=== PATIENT | male | born 1985 | race Caucasian/White ===

== ENCOUNTER 2022-07-11 20:35 | Inpatient (IN) | payer OTHER ==
[~2022-07-11] VITALS: Ht 182.9 cm; Wt 124.7 kg
[2022-07-11 20:35] VITALS: BP 159/92
--- NOTE | 2022-07-11 20:41 | NUR ---
PT BIBA ALS ER BED 5
--- NOTE | 2022-07-11 20:45 | NUR ---
Dr. Flores by bedside evaluating patient.
--- NOTE | 2022-07-11 21:00 | NUR ---
36YR OLD MALE BIB EMS C/O HIGH GLUC HTN. PT IS FROM [facility] [address]. PT IS A&OX3. PAIN IN LUCINA SHOULERS NO INJURY. CHRONIC PAIN. PT IS ON BEDSIDE SOLUTIONS EXECUTIVE SECURITY DENIES CP OR SOB . ACCU CHECK ON ARRIVAL 399. HOB ELEVATED. SKIN WARM AND DRY. NKDA DM HTN HONORIO VILLANUEVA
[2022-07-11] MEDS ORDERED: INSULIN REGULAR, HUMAN 100 UNIT/ML VIAL IV ONE (21:05)
[2022-07-11] MEDS ORDERED: NACL 0.9% 1,000 ML IV ONE (21:05)
[2022-07-11 21:26] LABS: APPEARANCE,URINE CLEAR (CLEAR); BILIRUBIN,URINE NEGATIVE (NEGATIVE); BLOOD, URINE NEGATIVE (NEGATIVE); COLOR,URINE YELLOW (YELLOW); LEUKOCYTE ESTERASE ,URINE NEGATIVE (NEGATIVE); NITRITE, URINE NEGATIVE (NEGATIVE); UGLUCOSE 3+ (NEGATIVE)
[2022-07-11 21:52] LABS: BASOPHILS # (AUTO) 0.1 K/uL (0.00-0.22); BASOPHILS % (AUTO) 0.9 % (0.0-2.0); EOSINOPHILS # (AUTO) 0.1 K/uL (0-0.4); EOSINOPHILS % (AUTO) 0.7 % (0.0-4.0); HEMATOCRIT 39.4 % (36-52); LYMPHOCYTES # (AUTO) 2.4 K/uL (2.0-11.5); LYMPHOCYTES % (AUTO) 21.9 % (20.5-51.1); MEAN CORPUSCULAR HEMOGLOBIN 30 pg (27-31); MEAN CORPUSCULAR HGB CONC 33 g/dL (33-37); MEAN CORPUSCULAR VOLUME 90.8 fL (80-94); MONOCYTES # (AUTO) 1.1 K/uL (0.8-1.0); MONOCYTES % (AUTO) 10.1 % (1.7-9.3); NEUTROPHILS # (AUTO) 7.3 K/uL (1.8-7.7); NEUTROPHILS % (AUTO) 66.4 % (42.2-75.2); PLATELET COUNT (AUTO) 403 K/uL (140-450); RED BLOOD CELL COUNT(AUTO) 4.35 MIL/uL (4.20-6.10); RED CELL DISTRIBUTION WIDTH 13.4 % (11.6-13.7); WHITE BLOOD COUNT (AUTO) 10.9 K/uL (4.8-10.8)
--- NOTE | 2022-07-11 22:01 | NUR ---
FOOD PROVIDED TO PT
[2022-07-11 22:25] LABS: ALBUMIN 3.4 g/dL (3.4-5.0); ANION GAP 21.3 (8-16); CARBON DIOXIDE 16.4 mmol/L (21-32); CREATININE 0.9 mg/dL (0.6-1.3); POTASSIUM 4.7 mmol/L (3.5-5.1); TOTAL BILIRUBIN 0.3 mg/dL (0.0-1.0)
[2022-07-11] MEDS ORDERED: INSULIN REGULAR, HUMAN 100 UNIT/ML VIAL IVP ONE (22:45)
[2022-07-12] MEDS ORDERED: MAGNESIUM OXIDE 400 MG TAB PO PRN (02:15)
[2022-07-12] MEDS ORDERED: MORPHINE SULFATE 2 MG/ML SYR IVP PRN (02:15)
[2022-07-12] MEDS: NACL 0.9% 1,000 ML IV SCH ×2 (02:15→14:52)
[2022-07-12] MEDS ORDERED: ONDANSETRON 4 MG/2 ML VIAL IVP PRN (02:15)
[2022-07-12] MEDS ORDERED: ACETAMINOPHEN 325 MG TAB PO PRN (02:15)
[2022-07-12] MEDS ORDERED: DEXTROSE 50% 50 ML SYR IVP PRN (02:20)
[2022-07-12] MEDS ORDERED: cefTRIAXone 1,000 MG VIAL ONE (03:06)
[2022-07-12] MEDS: INSULIN LANTUS 100 UNITS/ML 10 ML VIAL SUBQ SCH ×2 (03:45→10:21)
--- NOTE | 2022-07-12 04:58 | NUR ---
PT RESTING IN BED ON BEDSIDE SUPERVISOR COLD ROLLING. PT IS ADMITTED TO TELE A HOLD. 24G IV CATH PLACED IN L WRIST. RESP EVEN AND UNLABORED.
[2022-07-12] MEDS ORDERED: METF-713 PO (06:17)
[2022-07-12] MEDS ORDERED: IBUP-2213 PO (06:18)
--- NOTE | 2022-07-12 07:20 | NUR ---
Report recieved from KHALIF Montiel for transfer of care.
[2022-07-12] MEDS: BLOOD GLUCOSE MONITORING 1 DEV DEV FS SCH ×4 (07:44→20:23)
--- NOTE | 2022-07-12 07:59 | NUR ---
Patient will be admitted to care of Dr. Rivera. Admited to Med-Surg. Will go to room 124A. Belongings list completed. Report to KHALIF Mahan.
--- NOTE | 2022-07-12 08:00 | NUR ---
The patient's care was reviewed and supervised by RICHARD ECKERT RN.
--- NOTE | 2022-07-12 09:03 | NUR ---
PATIENT HAS BEEN SCREENED AND CATEGORIZED MODERATE NUTRITION RISK. PATIENT WILL BE SEEN WITHIN 3-5 DAYS OF ADMISSION. REVIEWED BY SRIDHAR ANDRADE RD
--- NOTE | 2022-07-12 09:46 | NUR ---
RECEIVED PT CARE AND REPORT FROM NATO RN. PT IS RESTING IN BED SEMI-FOWLERS WITH OU CLOSED. NO VISIBLE S/S OF DISTRESS, DISCOMFORT, PAIN OR SOB. CALL LIGHT IS WITHIN REACH, ALL NEEDS MET AT THIS TIME.
[2022-07-12] MEDS: DOCUSATE SODIUM 100 MG GELCAP PO SCH (10:18)
[2022-07-12] MEDS: ENOXAPARIN 40 MG/0.4 ML SYR SUBQ SCH (10:22)
--- NOTE | 2022-07-12 11:13 | NUR ---
MRSA SPECIMEN OBTAINED.
--- NOTE | 2022-07-12 11:54 | NUR ---
DC PLANNING ASSESSMENT COMPLETE PLEASE REFER TO ASSESSMENT FOR ADDITIONAL DETAILS ALECIA, BAKERY HELPER REPORTS DC PLAN IS FOR PT TO RETURN TO [facility]; SOCIAL REHAB PROGRAM WHEN MEDICALLY STABLE. FACILITY IS REPORTED TO PROVIDE TRANSPORTATION. ALECIA REQUESTING ENGAGEMENT ENGINEER DIRECTOR, RICHARD, BE NOTIFIED IF DC OCCURS OVER THE WEEKEND. 1045: OUTREACHED TO PTS CONSERVATOR; LINK [phone] HOWEVER SPOKE WITH PRADIP COTTON BALL MACHINE TENDER WHO REPORTS LINK IS OUT OF THE OFFICE FOR HER FLEX FRIDAY. MOUNIKA REQUESTED TO SPEAK WITH OF THE DAY DAHIANA HOWEVER, PRADIP REPOTS HE IS CURRENTLY ON ANOTHER CALL. PRADIP REPORTS EMAIL WAS BEING SENT TO DAHIANA, ALL CONTACT INFO FOR MOUNIKA AND LUKE, PROVIDED TO PRADIP Addendum: 07/12/22 at 1159 by Tod PISANO Amended: Links added. Addendum: 08/09/22 at 1346 by Tod PISANO OUTREACHED TO JENIFER SOMMER, , LINK SIMPSON PRODUCE SPECIALIST, HOWEVER NO ANSWER.
[2022-07-12 12:00] VITALS: BP 130/75
--- NOTE | 2022-07-12 12:05 | NUR ---
NO SLIDING SCALE AT THIS TIME. TEXTED DR. PAREKH TO REQUEST SLIDING SCALE. BLOOD SUGAR IS 323 AT THIS TIME.
[2022-07-12] MEDS: INSULIN LISPRO SLIDING SCALE 100 UNITS/ML VIAL SUBQ PRN ×3 (12:21→20:27)
--- NOTE | 2022-07-12 14:15 | NUR ---
TEXTED DR. PAREKH TO INFORM THAT PATIENT IS REQUESTING NICODERM GUM. ASKED IF NICODERM PATCH CAN BE ORDERED FOR PATIENT. AWAITING ORDER.
--- NOTE | 2022-07-12 15:44 | NUR ---
NEW IV INSERTED BY [facility] IN[facility] TJ IN LEFT AC 22G X1 ATTEMPT WITH STUDENTS. IV LINE INTACT AND FLUSHES. NO COMPLAINTS OF PAIN FROM PT.
[2022-07-12 16:00] VITALS: BP 139/79
--- NOTE | 2022-07-12 17:34 | NUR ---
REPORT GIVEN TO DELIO CUADRA FOR TRANSFER OF CARE. PT IS RESTING IN BED ON LEFT SIDE WITH OU CLOSED. NO VISIBLE S/S OF DISTRESS, DISCOMFORT, PAIN OR SOB. CALL LIGHT IS WITHIN REACH, ALL NEEDS MET AT THIS TIME.
--- NOTE | 2022-07-12 17:35 | NUR ---
RECEIVED PT FROM [place] FOR TRANSFER OF CARE. PT IS WALKING INTO HALLWAY AOX4, ABLE TO VERBALIZE NEEDS. RESPIRATIONS EVEN AND UNLABORED. LUNGS CLEAR. IV ON LAC 20G RUNNING NS@80. PT REDIRECTED TO BED. ALL SAFETY PRECAUTIONS IN PLACE. CALL LIGHT WITHIN REACH.
--- NOTE | 2022-07-12 19:22 | NUR ---
ENDORSED PT TO CORRECTIONS CASEWORKER NURSE FOR CONTINUITY OF CARE. PT STABLE.
--- NOTE | 2022-07-12 19:30 | NUR ---
RECEIVED PT IN BED, AWAKE,ALERT AND ORIENTED. DENIES PAIN. DENIES SHORTNESS OF BREATH. SKIN WARM AND DRY TO TOUCH IV NOT FLUSHING, REINSERTED IV IN THE RIGHT WRIST GAUGE 24. SAFETY PRECAUTIONS IN PLACE, CALL LIGHT IN REACH.
[2022-07-12 20:00] VITALS: BP 141/75
[2022-07-12] MEDS: MELATONIN 3 MG TAB PO PRN (21:13)
[2022-07-12] MEDS: HYDROcodone/APAP 5/325 MG 1 TAB TAB PO PRN (23:31)
--- NOTE | 2022-07-13 01:50 | NUR ---
PATIENT IS ASLEEP. NO S/SX OF PAIN NOR DISCOMFORT. CALL LIGHT IN REACH.
[2022-07-13] MEDS: NACL 0.9% 1,000 ML IV SCH ×3 (02:13→23:38)
[2022-07-13 04:00] VITALS: BP 147/80
[2022-07-13 05:39] LABS: BASOPHILS # (AUTO) 0.1 K/uL (0.00-0.22); BASOPHILS % (AUTO) 0.6 % (0.0-2.0); EOSINOPHILS # (AUTO) 0.2 K/uL (0-0.4); EOSINOPHILS % (AUTO) 1.5 % (0.0-4.0); HEMATOCRIT 35.2 % (36-52); HEMOGLOBIN 11.8 g/dL (12.0-18.0); LYMPHOCYTES # (AUTO) 3.9 K/uL (2.0-11.5); MEAN CORPUSCULAR HEMOGLOBIN 30 pg (27-31); MEAN CORPUSCULAR HGB CONC 34 g/dL (33-37); MEAN CORPUSCULAR VOLUME 89.3 fL (80-94); MONOCYTES % (AUTO) 9.8 % (1.7-9.3); NEUTROPHILS # (AUTO) 5.3 K/uL (1.8-7.7); NEUTROPHILS % (AUTO) 51.1 % (42.2-75.2); PLATELET COUNT (AUTO) 356 K/uL (140-450); RED BLOOD CELL COUNT(AUTO) 3.94 MIL/uL (4.20-6.10); RED CELL DISTRIBUTION WIDTH 13.3 % (11.6-13.7); WHITE BLOOD COUNT (AUTO) 10.5 K/uL (4.8-10.8)
[2022-07-13 06:24] LABS: ANION GAP 16.9 (8-16); CARBON DIOXIDE 19.8 mmol/L (21-32); CREATININE 0.7 mg/dL (0.6-1.3); POTASSIUM 3.7 mmol/L (3.5-5.1)
[2022-07-13] MEDS: BLOOD GLUCOSE MONITORING 1 DEV DEV FS SCH ×4 (06:34→20:25)
[2022-07-13] MEDS: INSULIN LISPRO SLIDING SCALE 100 UNITS/ML VIAL SUBQ PRN ×4 (06:35→20:26)
--- NOTE | 2022-07-13 06:45 | NUR ---
PATIENT IS ASLEEP. ALL NEEDS ATTENDED TO. NO DISTRESS NOTED. SAFETY PRECAUTIONS IN PLACE DURING THE SHIFT, CALL LIGHT REMAINS WITHIN REACH.
[2022-07-13] MEDS: NICOTINE TRANSD SYS 7 MG/24 HR PATCH TD SCH (09:25)
[2022-07-13] MEDS: DOCUSATE SODIUM 100 MG GELCAP PO SCH (09:26)
[2022-07-13] MEDS: ENOXAPARIN 40 MG/0.4 ML SYR SUBQ SCH (09:26)
[2022-07-13] MEDS: INSULIN LANTUS 100 UNITS/ML 10 ML VIAL SUBQ SCH (09:27)
--- NOTE | 2022-07-13 10:38 | NUR ---
RECEIVED BEDSIDE ENDORSEMENT FROM IT SUPPORT MANAGER NURSE FOR CONTINUITY OF CARE. PT IS ASLEEP, AWAKEN BY NAME AND TOUCH. NO SIGN OF DISTRESS. IV SITE INTACT ON RIGHT WRIST. WILL CONTINUE TO MONITOR. Addendum: 07/13/22 at 1100 by JOSÉ MANUEL WINTERS RN WRONG TIME ENTRY. [id number]
[2022-07-13] MEDS ORDERED: INSULIN LISPRO 100 UNITS/ML VIAL SUBQ ONE (16:30)
--- NOTE | 2022-07-13 19:40 | NUR ---
RECEIVED PT IN BED AWAKE, ALERT AND ORIENTED. DENIES PAIN. NO ACUTE RESPIRATORY DISTRESS NOTED. IVF INFUSING WELL ORDERED. SKIN WARM AND DRY TO TOUCH. SAFETY PRECAUTIONS IN PLACE, CALL LIGHT IN REACH.
[2022-07-13 20:00] VITALS: BP 152/88
--- NOTE | 2022-07-13 20:26 | NUR ---
BS-398 MG/DL, INSULIN GIVEN PER SLIDING SCALE ORDERED.
--- NOTE | 2022-07-13 21:00 | NUR ---
PROVIDED SANDWICH PER PT'S REQUEST.
[2022-07-13] MEDS: MELATONIN 3 MG TAB PO PRN (22:10)
[2022-07-14 04:00] VITALS: BP 113/62
[2022-07-14] MEDS: BLOOD GLUCOSE MONITORING 1 DEV DEV FS SCH ×4 (06:33→19:55)
[2022-07-14] MEDS: INSULIN LISPRO SLIDING SCALE 100 UNITS/ML VIAL SUBQ PRN ×3 (06:33→19:57)
--- NOTE | 2022-07-14 06:35 | NUR ---
PATIENT IS ASLEEP. ALL NEEDS ATTENDED TO. NO DISTRESS NOTED. SAFETY PRECAUTIONS MAINTAINED DURING THE SHIFT, CALL LIGHT REMAINS WITHIN REACH.
[2022-07-14 07:01] LABS: BASOPHILS # (AUTO) 0.1 K/uL (0.00-0.22); BASOPHILS % (AUTO) 0.6 % (0.0-2.0); EOSINOPHILS # (AUTO) 0.1 K/uL (0-0.4); HEMATOCRIT 37.2 % (36-52); HEMOGLOBIN 12.4 g/dL (12.0-18.0); LYMPHOCYTES # (AUTO) 3.8 K/uL (2.0-11.5); LYMPHOCYTES % (AUTO) 36.6 % (20.5-51.1); MEAN CORPUSCULAR HEMOGLOBIN 30 pg (27-31); MEAN CORPUSCULAR HGB CONC 33 g/dL (33-37); MEAN CORPUSCULAR VOLUME 89.3 fL (80-94); MONOCYTES # (AUTO) 0.9 K/uL (0.8-1.0); MONOCYTES % (AUTO) 8.1 % (1.7-9.3); NEUTROPHILS # (AUTO) 5.6 K/uL (1.8-7.7); NEUTROPHILS % (AUTO) 53.7 % (42.2-75.2); PLATELET COUNT (AUTO) 356 K/uL (140-450); RED BLOOD CELL COUNT(AUTO) 4.17 MIL/uL (4.20-6.10); RED CELL DISTRIBUTION WIDTH 13.4 % (11.6-13.7); WHITE BLOOD COUNT (AUTO) 10.5 K/uL (4.8-10.8)
[2022-07-14 07:05] LABS: ANION GAP 16.8 (8-16); CARBON DIOXIDE 21.7 mmol/L (21-32); CREATININE 0.7 mg/dL (0.6-1.3); POTASSIUM 3.5 mmol/L (3.5-5.1)
--- NOTE | 2022-07-14 07:10 | NUR ---
RECEIVED REPORT FROM NIGHTSHIFT NURSE. PT IS RESTING IN BED, NO SIGNS OF DISTRESS, NO REPORTS OF PAIN/DISCOMFORT. IV TO LEFT AC CLEAN/INTACT/PATENT. REORIENTED PT TO CALL LIGHT. NO FURTHER NEEDS ARE TO BE MET AT THIS TIME. WILL CONTINUE WITH PATIENT CARE.
[2022-07-14] MEDS: ENOXAPARIN 40 MG/0.4 ML SYR SUBQ SCH (08:52)
[2022-07-14] MEDS: DOCUSATE SODIUM 100 MG GELCAP PO SCH (08:53)
[2022-07-14] MEDS: NICOTINE TRANSD SYS 7 MG/24 HR PATCH TD SCH (08:53)
[2022-07-14] MEDS ORDERED: INSULIN LANTUS 100 UNITS/ML 10 ML VIAL SUBQ SCH (09:00)
[2022-07-14] MEDS: INSULIN LISPRO 100 UNITS/ML VIAL SUBQ SCH ×2 (12:30→17:30)
[2022-07-14] MEDS: NACL 0.9% 1,000 ML IV SCH (16:49)
--- NOTE | 2022-07-14 19:24 | NUR ---
ENDORSED PT TO NIGHTSHIFT NURSE FOR CONTINUITY OF CARE. PT IS AWAKE, STABLE, NO SIGNS OF DISTRESS. PT STARTING TO WANDER. DIRECTED PT BACK TO BED AND INSTRUCTED HIM TO STAY. NIGHTSHIFT NURSE IS AWARE OF PT WANDERING.
[2022-07-14 20:00] VITALS: BP 156/92
--- NOTE | 2022-07-14 20:00 | NUR ---
NURSE REPORT REPORT OBTAINED FROM MYLENE ZHANG AT 1924 AND THIS NURSE ASSUMED CARE OF PATIENT. VSS. AFEB, NO C/O PAIN OR DISCOMFORT. YECENIA MEZA RN
--- NOTE | 2022-07-14 21:30 | NUR ---
NURSE REPORT REPORT GIVEN TO OTHER NIGHT NURSE JONAS TO ASSUME CARE OF PATIENT. ALL QUESTIONS ANSWERED. YECENIA MEZA RN
[2022-07-14] MEDS: MELATONIN 3 MG TAB PO PRN (22:25)
--- NOTE | 2022-07-15 02:27 | NUR ---
Pt dislodged saline lock earlier. Attempted restart to RH - but unable to get venous access. Pt also has no visible veins at this time. Reported situation and staff reports pt being a hard stick. Additionally, pt has difficult time understanding what "relax" means; Pt interpreted the word as to stiffen arm, hand, both arm and hand, making a tight fist, etc.
--- NOTE | 2022-07-15 04:07 | NUR ---
NsgSup restarted IV access site to L Arm.
[2022-07-15 05:23] LABS: BASOPHILS # (AUTO) 0.2 K/uL (0.00-0.22); BASOPHILS % (AUTO) 1.5 % (0.0-2.0); EOSINOPHILS # (AUTO) 0.2 K/uL (0-0.4); EOSINOPHILS % (AUTO) 1.3 % (0.0-4.0); HEMATOCRIT 37.2 % (36-52); HEMOGLOBIN 12.3 g/dL (12.0-18.0); LYMPHOCYTES # (AUTO) 3.6 K/uL (2.0-11.5); LYMPHOCYTES % (AUTO) 29.4 % (20.5-51.1); MEAN CORPUSCULAR HEMOGLOBIN 30 pg (27-31); MEAN CORPUSCULAR HGB CONC 33 g/dL (33-37); MEAN CORPUSCULAR VOLUME 89.5 fL (80-94); MONOCYTES % (AUTO) 7.8 % (1.7-9.3); NEUTROPHILS # (AUTO) 7.4 K/uL (1.8-7.7); PLATELET COUNT (AUTO) 371 K/uL (140-450); RED BLOOD CELL COUNT(AUTO) 4.16 MIL/uL (4.20-6.10); RED CELL DISTRIBUTION WIDTH 13.2 % (11.6-13.7); WHITE BLOOD COUNT (AUTO) 12.4 K/uL (4.8-10.8)
[2022-07-15 05:38] LABS: ANION GAP 15.2 (8-16); CARBON DIOXIDE 22.4 mmol/L (21-32); CREATININE 0.8 mg/dL (0.6-1.3); POTASSIUM 3.6 mmol/L (3.5-5.1)
[2022-07-15] MEDS: NACL 0.9% 1,000 ML IV SCH (06:17)
--- NOTE | 2022-07-15 07:10 | NUR ---
RECEIVED BEDSIDE REPORT FROM NIGHTSHIFT NURSE. PT IS RESTING IN BED, NO SIGNS OF DISTRESS, NO REPORTS OF PAIN/DISCOMFORT. NO FURTHER NEEDS ARE TO BE MET AT THIS TIME. WILL CONTINUE WITH CARE.
[2022-07-15] MEDS: BLOOD GLUCOSE MONITORING 1 DEV DEV FS SCH ×4 (07:39→20:45)
[2022-07-15] MEDS: INSULIN LISPRO 100 UNITS/ML VIAL SUBQ SCH ×3 (07:43→17:19)
[2022-07-15] MEDS: INSULIN LISPRO SLIDING SCALE 100 UNITS/ML VIAL SUBQ PRN ×2 (07:45→20:46)
[2022-07-15 08:00] VITALS: BP 138/72
[2022-07-15] MEDS: NICOTINE TRANSD SYS 7 MG/24 HR PATCH TD SCH (08:50)
[2022-07-15] MEDS: ENOXAPARIN 40 MG/0.4 ML SYR SUBQ SCH (08:50)
[2022-07-15] MEDS: DOCUSATE SODIUM 100 MG GELCAP PO SCH (08:51)
[2022-07-15] MEDS: INSULIN LANTUS 100 UNITS/ML 10 ML VIAL SUBQ SCH (08:54)
[2022-07-15] MEDS ORDERED: CEFD300C3 PO (10:47)
[2022-07-15] MEDS ORDERED: LANTUS SUBQ (10:47)
[2022-07-15] MEDS ORDERED: HUM SUBQ (10:47)
[2022-07-15] MEDS ORDERED: ACET-1182 PO (10:47)
[2022-07-15] MEDS ORDERED: FUROSEMIDE 20 MG/2 ML VIAL IVP SCH (13:00)
--- NOTE | 2022-07-15 13:00 | NUR ---
ARRANGING DISCHARGE FOR PT. CONTACTED [facility] (BOARDING CARE) AND SPOKE WITH DIRECTOR (COMPA- ) AND GLOBAL DIRECTOR AIR AND CLIMATE CHANGE (ALECIA- ). ALECIA STATES THEY CANNOT ACCEPT THE PT BACK IF HE HAS PRESCRIPTION FOR INSULIN THEY CANNOT GIVE ANY MEDS. CASE MANAGEMENT INFORMED. WAITING FOR INSTRUCTION/INFORMATION ON WHERE PT WILL BE DISCHARGED.
[2022-07-15 13:59] VITALS: BP 130/72
--- NOTE | 2022-07-15 14:37 | NUR ---
07/15/22 RD INITIAL ASSESSMENT COMPLETED PLEASE REFER TO NUTRITION ASSESSMENT UNDER CARE ACTIVITY FOR ESTIMATED NUTRITIONAL NEEDS. 1. CONTINUE [id number] DIET TOLERATED 2. PROVIDED NUTRITION EDUCATION AND HANDOUTS FOR CARB COUNTING 3. RD TO FOLLOW-UP 7 DAYS, LOW RISK REVIEWED BY SRIDHAR ANDRADE RD
--- NOTE | 2022-07-15 19:30 | NUR ---
ENDORSED PT TO NIGHTSCOFT NURSE FOR CONTINUITY OF CARE. PT HAS NO IV SITE, REMOVED IV AGAIN, ATTEMPTED 2X TO REINSERT IV AND WAS UNSUCCESSFUL. HAD ANOTHER NURSE ATTEMPT 2X AND THE CHARGE NURSE ATTEMPT 2X. ALL UNSUCCESSFUL. PT DOES NOT WANT TO TRY AGAIN. NIGHTSCOFT NURSE INFORMED.
--- NOTE | 2022-07-15 19:31 | NUR ---
RECEIVED REPORT FROM DAY SHIFT NURSE LEATHA FOR CONTINUITY OF CARE. PT AWAKE, WALKING INSIDE ROOM. AMBULATORY WITH STEADY GAIT. RESPIRATIONS EVEN AND UNLABORED ON RA. DENIES PAIN. NO IV SITE. PER RN, ATTEMPTS TO INSERT NEW IV LINE UNSUCCESSFUL. NOW, PT WAS REFUSING AN IV LINE. MADE AWARE, AWAITING RESPONSE. POC DISCUSSED. REPORT GIVEN TO KHALIF KLEIN. CALL LIGHT WITHIN REACH. SAFETY PRECAUTIONS IN PLACE.
[2022-07-15 20:00] VITALS: BP 145/75
--- NOTE | 2022-07-15 20:00 | NUR ---
Patient's Plan of Care was discussed and reviewed with INTERACTIVE WEB DEVELOPER: ROSE ORTEGA
--- NOTE | 2022-07-15 20:45 | NUR ---
SLIDING SCALE INSULIN ADMINISTERED FOR BS 222. PT COMPLIANT. TOLERATED WELL.
--- NOTE | 2022-07-16 00:16 | NUR ---
NEW IV LINE ESTABLISHED. NOW ON LEFT FOREARM 22G. PT TOLERATED WELL.
[2022-07-16] MEDS: MELATONIN 3 MG TAB PO PRN ×2 (00:59→23:20)
[2022-07-16 04:00] VITALS: BP 141/82
[2022-07-16 06:02] LABS: ANION GAP 14.9 (8-16); CARBON DIOXIDE 24.5 mmol/L (21-32); CREATININE 0.8 mg/dL (0.6-1.3); POTASSIUM 3.4 mmol/L (3.5-5.1)
[2022-07-16 06:18] LABS: BASOPHILS # (AUTO) 0.1 K/uL (0.00-0.22); BASOPHILS % (AUTO) 0.7 % (0.0-2.0); EOSINOPHILS # (AUTO) 0.2 K/uL (0-0.4); EOSINOPHILS % (AUTO) 1.6 % (0.0-4.0); HEMOGLOBIN 12.3 g/dL (12.0-18.0); LYMPHOCYTES # (AUTO) 3.9 K/uL (2.0-11.5); LYMPHOCYTES % (AUTO) 30.2 % (20.5-51.1); MEAN CORPUSCULAR HEMOGLOBIN 31 pg (27-31); MEAN CORPUSCULAR HGB CONC 34 g/dL (33-37); MEAN CORPUSCULAR VOLUME 89.8 fL (80-94); MONOCYTES # (AUTO) 1.1 K/uL (0.8-1.0); MONOCYTES % (AUTO) 8.8 % (1.7-9.3); NEUTROPHILS # (AUTO) 7.6 K/uL (1.8-7.7); NEUTROPHILS % (AUTO) 58.7 % (42.2-75.2); PLATELET COUNT (AUTO) 407 K/uL (140-450); RED BLOOD CELL COUNT(AUTO) 4.01 MIL/uL (4.20-6.10); RED CELL DISTRIBUTION WIDTH 13.9 % (11.6-13.7); WHITE BLOOD COUNT (AUTO) 12.9 K/uL (4.8-10.8)
[2022-07-16] MEDS: INSULIN LISPRO SLIDING SCALE 100 UNITS/ML VIAL SUBQ PRN ×3 (06:44→16:59)
[2022-07-16] MEDS: BLOOD GLUCOSE MONITORING 1 DEV DEV FS SCH ×4 (06:44→20:40)
[2022-07-16] MEDS: INSULIN LISPRO 100 UNITS/ML VIAL SUBQ SCH ×3 (06:45→17:02)
--- NOTE | 2022-07-16 07:15 | NUR ---
GAVE BEDSIDE REPORT TO ESTEPHANIE SNELL FOR CONTINUITY OF CARE. PT IS STABLE.
--- NOTE | 2022-07-16 07:15 | NUR ---
ASSUMED CONTINUITY OF CARE. INITIAL ASSESSMENT DONE. KEEP COMFORTABLE ON BED. CALL LIGHT WITHIN REACH.
[2022-07-16 08:00] VITALS: BP 148/75
--- NOTE | 2022-07-16 08:00 | NUR ---
Patient's Plan of Care was discussed and reviewed with VICE PRESIDENT TALENT MANAGEMENT: ALIS SEYMOUR
[2022-07-16] MEDS: DOCUSATE SODIUM 100 MG GELCAP PO SCH (08:57)
[2022-07-16] MEDS: NICOTINE TRANSD SYS 7 MG/24 HR PATCH TD SCH (08:57)
[2022-07-16] MEDS: ENOXAPARIN 40 MG/0.4 ML SYR SUBQ SCH (08:58)
[2022-07-16] MEDS: INSULIN LANTUS 100 UNITS/ML 10 ML VIAL SUBQ SCH (09:34)
[2022-07-16] MEDS: POTASSIUM CHLORIDE 10 MEQ TABER PO PRN (11:34)
--- NOTE | 2022-07-16 11:55 | NUR ---
DC PLANNING: LUKE CALLED [facility] SPOKE WITH TELEX OPERATOR ALECIA [phone] STATED CAN NOT ACCEPT PATIENT WITH INSULIN INJECTION, HOWEVER CM EXPLAINED THAT NO INSULIN INJECTION INSTEAD GETTING PO MEDS GLIPIZIDE, METFORMIN AND JANUVIA. PER ALECIA ALREADY CLOSED HIS BED AND TO CONTACT HIS PUBLIC GUARDIAN. CALLED LINK HIS PUBLIC GUARDIAN X3 LEFT A MESSAGE. CM TO FOLLOW Addendum: 07/17/22 at 1455 by Denise Dominique RN DC PLANNING: RECEIVED A CALL FROM PUBLIC GUARDIAN SPOKE WITH LINK STATED SHE SPOKE WITH THE ADMIN AT [facility] AND WON'T TAKE PATIENT BACK AND GAVE AWAY THE BED. LINK PROVIDE 2 PLACES TO REQUEST THE PLACEMENT. [facility] SPOKE WITH THE ADMIN STATE HE IS FAMILIAR WITH THE PATIENT AND UNABLE TO CONTROL HIS BEHAVIOR AND WONT ACCEPT HIM .HE RECOMMENDED TO CALL THE [facility] HARD PLACEMENT. [facility] [phone] STATED HE IS YOUNG FOR THE HOME AND WONT ACCEPT HIM. CALLED [facility] SPOKE WITH [facility] [phone] NOTIFIED HER THAT UNABLE TO FIND A PLACEMENT, VINI BHARDWAJ WILL EMAIL THE REQUEST FORM . LUKE PROVIDE THE EMAIL. DC PLAN AWAITING FOR PLACEMENT. CM TO FOLLOW Addendum: 07/18/22 at 1508 by Denise Dominique RN DC PLANNING: CALLED PUBLIC GUARDIAN [phone] [phone] LEFT A MESSAGE. CALLED [facility] SKILLED NURSING PLACEMENT SPOKE WITH [facility] PROVIDE THE NECESSARY DOCUMENT THROUGH EMAIL . CM EXPLAINED THAT PATIENT WAS ADMITTED TO THE HOSPITAL FOR MEDICAL REASON WITH A DX OF HYPER GLYCEMIA, HYPERNATREMIA AND DHN, NOT ANY PSYCH OR BEHAVIOR REASON. PER [facility] ONCE THEIR PROGRAM DETERMINES THAT A REFERRAL FITS FOR CRITERIA FOR GENERAL LEDGER ACCOUNTANT CARE PLACEMENT THEY WILL ASSIGN A CLINICAL MANAGER IT TRAINING TO COMPLETE AN INTERVIEW ASSESSMENT WITH THE CLIENT. IT MIGHT TAKE LONGER THAN EXPECTED. CM TO FOLLOW Addendum: 07/18/22 at 1518 by Denise Dominique RN DC PLANNING: CM SPOKE WITH LINK CanelaPUBLIC GUARDIJAKE) STATED [facility] CAN NOT TAKE PATIENT BACK AND THEY ARE ALLOWED TO REFUSED PATIENT AFTER 3 DAYS, PER LINK THE [facility] WILL LOOK FOR THE GENERAL LEDGER ACCOUNTANT PLACEMENT AND CONTACT US. CM TO FOLLOW Addendum: 07/19/22 at 1147 by Denise Dominique RN DC PLANNING: LUKE SENT AN E-MAIL TO [facility], DEPT OF BEHAVIORAL HEALTH GENERAL LEDGER ACCOUNTANT [place]. SENATOR REGARDING THE EVALUATION AND ASSESSMENT. AWAITING FOR RESPONSE. CM TO FOLLOW Addendum: 07/22/22 at 1644 by Denise Dominique RN DC PLANNING: RECEIVED AN E-MAIL FROM [facility] MANAGER IT TRAINING STATED THEIR CLINICAL MS ANTONIO HUANG HAS BEEN ASSIGNED HOW EVER THEY ARE REQUESTING 10 QUESTION TO BE ANSWERED. CM ANSWERED ALL QUESTION PER DOCUMENTATION AND BASED OF NURSE'S ASSESSMENT. CM TO FOLLOW Addendum: 07/23/22 at 0919 by Giana Murillo CM SENT A FOLLOW UP EMAIL TO [facility] SIMMS OF [facility] HARD PLACEMENT TEAM, REQUESTING UPDATES. AWAITING FOR RESPONSE. WILL FOLLOW UP. Addendum: 07/24/22 at 1303 by Denise Dominique RN DC PLANNING: PER EMAIL FROM [facility] AT [facility] MANAGER IT TRAINING. NAME ANTONIO WILL COME ON 08/05 AT 2:30PM TO EVALUATE PATIENT. CM TO FOLLOW Addendum: 07/24/22 at 1527 by Denise Dominique RN DC PLANNING: CM FILE A REPORT TO THE [facility] CARE ABOUNDED DEPT. CM TO FOLLOW Addendum: 07/29/22 at 1234 by Denise Dominique RN DC PLANNING: CM CONTACTED ANTONIO AT [facility] [employer] THROUGH EMAIL REGARDING THE APPOINTMENT SCHEDULED ON 07/29/22 AT 2:30PM . ANTONIO MAILED BACK AND CONFIRM THE THE TEAM WILL BE HERE AT 2:30 PM. NOTIFIED PT NURSE MCDANIEL. CM TO FOLLOW Addendum: 07/29/22 at 1602 by Denise Dominique RN DC PLANNIN SOCIAL WORKERS TEAM FROM [facility] MET WITH THE PATIENT. MISS ALVAREZ, THE LEAD LEGAL EXECUTIVE ASSISTANT ASSESSED PATIENT REQUESTING NURSES NOTES FOR ANY UNUSUAL BEHAVIOR. CM PROVIDE ALL THE NURSES NOTES FOR CURRENT PATIENT'S BEHAVIOR. PER ANTONIO WILL CONTACT THE [facility] ADMIN TO ASK WHAT WAS THE REASON THAT THEY DON'T ACCEPT PATIENT. ONCE THEY FIND A PLACE WILL CONTACT [facility] CM. CM TO FOLLOW Addendum: 07/30/22 at 1416 by Denise Dominique RN DC PLANNING: RECEIVED AN EMAIL FROM MISS ARECHIGA REQUESTING FEW QUESTION TO BE ANSWERED. LUKE ANSWERED ALL QUESTION DOCUMENTED. VINI ALVAREZ WORKING WITH THEIR PLACEMENT TEAM AND INTER-AGENCY PARTNERS AND WILL CONTACT US ONCE A DECISION HAS BEEN MADE. CM TO FOLLOW Addendum: 08/01/22 at 1443 by Denise Dominique RN DC PLANNING: CM E-MAILED THE DIFFICULT PLACEMENT TEAM MISS ALVAREZ STATED SHE HAS NOT HEARD FROM THEIR COLLEGE PROFESSOR YET BUT SHE WILL SED A FOLLOW-UP E-MAIL AND REACH BACK TO [facility]. CM TO FOLLOW Addendum: 08/05/22 at 1623 by Dneise Dominique RN DC PLANNING: LUKE E-MAILED THE ANTONIO THE ASSIGNED MANAGER IT TRAINING FOR PLACEMENT NO ANSWER ,LEFT A MESSAGE FOR LINK THE PUBLIC GUARDIAN AND DISCUSSED WITH RAJANI MURRAY CM STATED SHE CONTACTED [facility] DIRECTOR OF MANAGER IT TRAINING OF [facility] STATED [facility] IS OFF TODAY AND WILL FOLLOW UP TOMORROW. CM TO FOLLOW Addendum: 08/06/22 at 1654 by Denise Dominique RN DC PLANNING: RECEIVED AN E-MAIL FROM ANTONIO STATED After discussions between our LTC team and leadership at [facility], It has been concluded that Mr. River will be accepted back to [facility] with the expectation that he remains proactive in managing his diabetes. PRIMARY NURSE SOBIA CALLED AND SPOKE WITH YUNIOR (TELEX OPERATOR) STATED WILL CALL HER BACK ONCE THEY ARRANGE THE TRANSPORT. AT 14OO THE JIG AND FIXTURE BUILDER YISSEL STATED HE DIDN'T SAY THAT HE HAS A BED, THE DISCUSSION WITH ANTONIO WAS TO PUT HIM IN WAITING LIST, HE IS REQUESTED THE E-MAIL FROM ANTONIO. CM CALLED [facility] AND CLARIFIED, RECEIVED A CALL FROM [facility] JIG AND FIXTURE BUILDER FERNIE FERRO [phone] STATED PATIENT HAS TO BE ON PO DIABETIC MEDICATION AND TO MONITOR HIS BLOOD GLUCOSE LEVEL WITH PO MEDS AND REQUESTING ALL THE LATEST CLINICAL TO BE E-MAILED TO [email or web address]. FAXED ALL CLINICALS AND NURSE NOTES TO CHRISTIANE DENISE. CM DISCUSSED WITH DR BUSTAMANTE TO DC LANTUS AND HUMOLOG INSULIN AND TO ADMINISTER PO DIABETIC MEDICATION. PATIENT IS GETTING METFORMIN AND AMARYL PO. CM TO FOLLOW Addendum: 08/07/22 at 1637 by Denise Dominique RN DC PLANNING: CM CALLED [facility] HAIR BLENDER [phone] SPOKE WITH YISSEL STATED DIDN'T TELL ANTONIO THAT THEY HAVE A BED BUT INSTEAD THE DISCUSSION WAS TO HAVE HIM IN WAITING LIST. CM CALLED JIG AND FIXTURE BUILDER OF [facility] GENERAL LEDGER ACCOUNTANT CARE SHORTHAND TEACHER OPAL FERRO STATED RECEIVED ALL LATEST CLINICALS AND WILL REVIEW AND SUBMIT TO [facility] AND OTHER [facility] AND CALL US BACK WHEN BED AVAILABLE. CM TO FOLLOW Addendum: 08/09/22 at 1503 by Denise Dominique RN DC PLANNING: RECEIVED AN E-MAIL FROM [employer] SPOKE WITH GISEL STATED WOULD LIKE TO SET UP PRE ASSESSMENT THROUGH ZOOM, SCHEDULED IT AT 1 PM. CM SPOKE WITH GISEL AFTER THE ASSESSMENT AND PER BRAIN WILL SUBMIT TO THE TREATMENT TEAM AND WILL GET BACK TO US ON FRIDAY OR FRIDAY. LUKE CALLED PUBLIC GUARDIAN LINK SEVERAL TIMES LEFT A MESSAGE, UNABLE TO REACH HER. MANAGER IT TRAINING DOM E-MAILED LINK'S JIG AND FIXTURE BUILDER TO ASSIST WITH PLACEMENT. CM TO FOLLOW Addendum: 08/13/22 at 1613 by Denise Dominique RN DC PLANNING: LUKE CALLED YISSEL AT [employer] STATED HE SUBMITTED [facility] AND PROVIDE THE PERSON TO CONTACT [facility]. CM RECEIVED A FORM 602A PHYSICIAN'S REPORT ON [facility] APPROVAL FORM. ALL FORMS SIGNED BY DR DESAI AND SENT TO [employer]. PER MARC NEEDS A NEW CXR AND COVID TEST. AWAITING FOR CXR AND COVID TEST. LUKE TO FOLLOW. Addendum: 08/15/22 at 0929 by Denise Dominique RN DC PLANNING: RECEIVED AN E-MAIL FROM [employer]. NAME OF FACILITY [facility] PHONE NUMBER [phone] [address] [id number] [place] [address] . VINI TRAN WILL BE AT [facility] BETWEEN 1 HR. NOTIFIED CAMILLA ADAMS CM TO FOLLOW
[2022-07-16 12:00] VITALS: BP 146/77
[2022-07-16] MEDS ORDERED: GLIM2TAB PO (13:26)
--- NOTE | 2022-07-16 16:09 | NUR ---
ASSUMED PATIENT CARE. PATIENT ALERT AWAKE NOT IN ANY DISTRESS NOTED. RESTING IN BED AT THIS TIME. WILL CONTINUE TO MONITOR.
--- NOTE | 2022-07-16 19:15 | NUR ---
RECEIVED REPORT FROM DAY SHIFT NURSE FOR CONTINUITY OF CARE. PT AWAKE, AMBULATING INSIDE ROOM. RESPIRATIONS EVEN AND UNLABORED ON RA. NO SIGNS OF DISCOMFORT NOTED. POC DISCUSSED. REPORT GIVEN TO KHALIF UPTON. CALL LIGHT WITHIN REACH. SAFETY PRECAUTIONS IN PLACE.
[2022-07-16 20:00] VITALS: BP 149/73
--- NOTE | 2022-07-16 20:40 | NUR ---
NO INSULIN COVERAGE FOR BS 143.
--- NOTE | 2022-07-16 21:00 | NUR ---
Patient's Plan of Care was discussed and reviewed with RAILROAD CONSTRUCTION DIRECTOR: ROSE ORTEGA
[2022-07-17 04:00] VITALS: BP 123/66
[2022-07-17 05:32] LABS: BASOPHILS # (AUTO) 0.1 K/uL (0.00-0.22); BASOPHILS % (AUTO) 0.8 % (0.0-2.0); EOSINOPHILS # (AUTO) 0.1 K/uL (0-0.4); EOSINOPHILS % (AUTO) 1.1 % (0.0-4.0); HEMATOCRIT 36.7 % (36-52); HEMOGLOBIN 12.1 g/dL (12.0-18.0); LYMPHOCYTES # (AUTO) 3.9 K/uL (2.0-11.5); LYMPHOCYTES % (AUTO) 30.4 % (20.5-51.1); MEAN CORPUSCULAR HEMOGLOBIN 30 pg (27-31); MEAN CORPUSCULAR HGB CONC 33 g/dL (33-37); MEAN CORPUSCULAR VOLUME 90.6 fL (80-94); MONOCYTES # (AUTO) 1.4 K/uL (0.8-1.0); MONOCYTES % (AUTO) 10.6 % (1.7-9.3); NEUTROPHILS # (AUTO) 7.4 K/uL (1.8-7.7); NEUTROPHILS % (AUTO) 57.1 % (42.2-75.2); PLATELET COUNT (AUTO) 400 K/uL (140-450); RED BLOOD CELL COUNT(AUTO) 4.05 MIL/uL (4.20-6.10); RED CELL DISTRIBUTION WIDTH 13.7 % (11.6-13.7)
[2022-07-17 05:46] LABS: ANION GAP 12.7 (8-16); CARBON DIOXIDE 26.6 mmol/L (21-32); CREATININE 0.7 mg/dL (0.6-1.3); POTASSIUM 3.3 mmol/L (3.5-5.1)
[2022-07-17] MEDS: INSULIN LISPRO SLIDING SCALE 100 UNITS/ML VIAL SUBQ PRN ×2 (06:40→11:55)
[2022-07-17] MEDS: BLOOD GLUCOSE MONITORING 1 DEV DEV FS SCH ×4 (06:40→21:24)
[2022-07-17] MEDS: INSULIN LISPRO 100 UNITS/ML VIAL SUBQ SCH ×3 (06:59→17:47)
--- NOTE | 2022-07-17 07:05 | NUR ---
GAVE BEDSIDE REPORT TO ESTEPHANIE SNELL FOR CONTINUITY OF CRAE. PT IS STABLE.
--- NOTE | 2022-07-17 07:05 | NUR ---
ASSUMED CONTINUITY OF CARE. INITIAL ASSESSMENT DONE. NON-COMPLIANT AT TIMES. REFUSED TO WEAR HOSPITAL GOWN. RE-ORIENTED TO EVENTS AND SURROUNDINGS. KEEP COMFORTABLE ON BED. CALL LIGHT WITHIN REACH.
[2022-07-17 08:00] VITALS: BP 130/73
[2022-07-17] MEDS: DOCUSATE SODIUM 100 MG GELCAP PO SCH (08:38)
[2022-07-17] MEDS: ENOXAPARIN 40 MG/0.4 ML SYR SUBQ SCH (08:41)
[2022-07-17] MEDS: NICOTINE TRANSD SYS 7 MG/24 HR PATCH TD SCH (09:19)
[2022-07-17] MEDS: INSULIN LANTUS 100 UNITS/ML 10 ML VIAL SUBQ SCH (09:28)
[2022-07-17] MEDS: POTASSIUM CHLORIDE 10 MEQ TABER PO PRN (10:09)
[2022-07-17] MEDS ORDERED: POTASSIUM CHLORIDE 10 MEQ TABER PO SCH (11:30)
[2022-07-17] MEDS ORDERED: FUROSEMIDE 40 MG/4 ML VIAL IVP SCH (11:30)
--- NOTE | 2022-07-17 11:32 | NUR ---
PAGED BANDAR REZA REGARDING VERIFICATION ORDER OF EXTRA DOSE OF K-DUR 40 MEQ PO AND ALSO INFORMED OF K-DUR 40 MEQ PO GIVEN AT 1009. BANDAR REZA PAGED BACK AND ORDERED TO GIVE ANOTHER DOSE OF K-DUR 40 MEQ PO DUE TO NEW ORDER OF LASIX 40 MG IVP X1 DOSE.
[2022-07-17] MEDS ORDERED: LORazepam 2 MG/ML VIAL IVP PRN (12:15)
--- NOTE | 2022-07-17 13:00 | NUR ---
BANDAR REZA CAME AND SEEN PT..
[2022-07-17 16:00] VITALS: BP 140/84
--- NOTE | 2022-07-17 17:47 | NUR ---
BLOOD SUGAR 139. HUMALOG INSULIN 12 UNITS SUB-Q GIVEN PER MD ORDER WITH DINNER TRAY (FOOD). PT. STARTED TO EAT AT THIS TIME.
--- NOTE | 2022-07-17 19:25 | NUR ---
REPORT GIVEN TO AUSTIN VALENTINE FOR CONTINUITY OF CARE. IN STABLE CONDITION.
[2022-07-17 20:00] VITALS: BP_SYST 126; BP_SYST 140; BP_DIAS 84; BP_DIAS 90
--- NOTE | 2022-07-17 20:30 | NUR ---
PT WALKING IN AND OUT FROM ROOM SEVERAL TIMES AND AGITATED.
[2022-07-17] MEDS: HYDROcodone/APAP 5/325 MG 1 TAB TAB PO PRN (20:49)
--- NOTE | 2022-07-17 20:49 | NUR ---
PT COMPLAINTS OF GENERAL BODY PAIN 08/24, PAIN MEDICATION NORCO ADMINISTERED ORDER.
--- NOTE | 2022-07-17 21:00 | NUR ---
BLOOD SUGAR CHECKED = 101, NO INSULIN COVERAGE
--- NOTE | 2022-07-17 21:49 | NUR ---
REASSESSMENT OF PAIN, PT IS ASLEEP.
[2022-07-18 04:00] VITALS: BP 139/77
[2022-07-18] MEDS: BLOOD GLUCOSE MONITORING 1 DEV DEV FS SCH ×4 (06:33→20:39)
[2022-07-18] MEDS: INSULIN LISPRO SLIDING SCALE 100 UNITS/ML VIAL SUBQ PRN ×2 (06:34→11:08)
--- NOTE | 2022-07-18 06:36 | NUR ---
BLOOD SUGAR CHECK = 180 = 2 UNITS INSULIN, PT IS ON STABLE CONDITION.
[2022-07-18 07:08] LABS: CARBON DIOXIDE 25.6 mmol/L (21-32); CREATININE 0.8 mg/dL (0.6-1.3); POTASSIUM 3.6 mmol/L (3.5-5.1)
[2022-07-18 08:00] VITALS: BP 155/86
[2022-07-18] MEDS: INSULIN LANTUS 100 UNITS/ML 10 ML VIAL SUBQ SCH (08:45)
[2022-07-18] MEDS: NICOTINE TRANSD SYS 7 MG/24 HR PATCH TD SCH (08:45)
[2022-07-18] MEDS: DOCUSATE SODIUM 100 MG GELCAP PO SCH (08:45)
[2022-07-18] MEDS: ENOXAPARIN 40 MG/0.4 ML SYR SUBQ SCH (08:46)
[2022-07-18] MEDS: INSULIN LISPRO 100 UNITS/ML VIAL SUBQ SCH ×3 (08:47→18:47)
[2022-07-18 09:01] LABS: BASOPHILS # (AUTO) 0.1 K/uL (0.00-0.22); BASOPHILS % (AUTO) 0.8 % (0.0-2.0); EOSINOPHILS # (AUTO) 0.2 K/uL (0-0.4); EOSINOPHILS % (AUTO) 1.4 % (0.0-4.0); HEMATOCRIT 37.9 % (36-52); HEMOGLOBIN 12.3 g/dL (12.0-18.0); LYMPHOCYTES # (AUTO) 3.5 K/uL (2.0-11.5); LYMPHOCYTES % (AUTO) 29.8 % (20.5-51.1); MEAN CORPUSCULAR HEMOGLOBIN 30 pg (27-31); MEAN CORPUSCULAR HGB CONC 33 g/dL (33-37); MEAN CORPUSCULAR VOLUME 91.1 fL (80-94); MONOCYTES # (AUTO) 1.2 K/uL (0.8-1.0); MONOCYTES % (AUTO) 10.3 % (1.7-9.3); NEUTROPHILS # (AUTO) 6.8 K/uL (1.8-7.7); NEUTROPHILS % (AUTO) 57.7 % (42.2-75.2); PLATELET COUNT (AUTO) 419 K/uL (140-450); RED BLOOD CELL COUNT(AUTO) 4.16 MIL/uL (4.20-6.10); RED CELL DISTRIBUTION WIDTH 14.2 % (11.6-13.7); WHITE BLOOD COUNT (AUTO) 11.9 K/uL (4.8-10.8)
[2022-07-18 20:00] VITALS: BP 136/77
--- NOTE | 2022-07-18 20:39 | NUR ---
BLOOD SUGAR CHECK = 138, NO INSULIN COVERAGE. PT IS ON STABLE CONDITION, AWAKE & ALERT.
[2022-07-18] MEDS: cloZAPine 100 MG TAB PO SCH (21:33)
[2022-07-18] MEDS: DIVALPROEX 500 MG TABEC PO SCH (21:34)
[2022-07-18] MEDS: traZODone 50 MG TAB PO SCH (21:35)
--- NOTE | 2022-07-18 22:00 | NUR ---
PT IS TAKING HIS NIGHT MEDICATIONS THEN SLEEP.
--- NOTE | 2022-07-19 00:30 | NUR ---
PT ASLEEP. NO IV SITE.
--- NOTE | 2022-07-19 03:56 | NUR ---
IV LOCK INSERTED TO THE LEFT HAND 24G WITH GOOD BLOOD RETURN. PT TOLERATES WELL. ROCEPHINE ANTIBIOTIC GIVEN. PT IS ASLEEP.
[2022-07-19 04:00] VITALS: BP 128/74
[2022-07-19] MEDS: BLOOD GLUCOSE MONITORING 1 DEV DEV FS SCH ×4 (06:36→20:36)
--- NOTE | 2022-07-19 06:36 | NUR ---
BLOOD SUGAR CHECK = 115, NO INSULIN COVERAGE. PT IS STABLE AND VERBALIZED NEEDS.
[2022-07-19 08:00] VITALS: BP 140/92
[2022-07-19] MEDS: INSULIN LISPRO 100 UNITS/ML VIAL SUBQ SCH ×3 (08:18→17:30)
--- NOTE | 2022-07-19 08:21 | NUR ---
PATIENT GIVEN INSULIN 12 UNITS FOR STANDING ORDERS PRE-MEAL. HE SAYS HE WANTS TO GO BACK TO A FACILITY HE WAS AT IN [place].
[2022-07-19] MEDS: DOCUSATE SODIUM 250 MG GELCAP PO SCH (08:56)
[2022-07-19] MEDS: NICOTINE TRANSD SYS 7 MG/24 HR PATCH TD SCH (08:57)
[2022-07-19] MEDS: amLODIPine 5 MG TAB PO SCH (08:57)
[2022-07-19] MEDS: ENOXAPARIN 40 MG/0.4 ML SYR SUBQ SCH (08:58)
[2022-07-19] MEDS: cloZAPine 100 MG TAB PO SCH ×2 (08:59→21:41)
[2022-07-19] MEDS: INSULIN LANTUS 100 UNITS/ML 10 ML VIAL SUBQ SCH (09:13)
[2022-07-19] MEDS: INSULIN LISPRO SLIDING SCALE 100 UNITS/ML VIAL SUBQ PRN ×2 (12:31→21:37)
[2022-07-19 16:00] VITALS: BP 129/73
--- NOTE | 2022-07-19 18:51 | NUR ---
Patient given explanation as he was asking about his previous location and personal belongings. Gave information that charge nurse was able to reach out to his previous facility, [facility] [place] and the bed was given to another person. Patient given this information and has become very anxious about talking to his sister to obtain his belongings from the facility. He says her phone number is [phone]. When this number is dialed it gives a busy signal.
[2022-07-19 20:00] VITALS: BP 157/86
--- NOTE | 2022-07-19 21:00 | NUR ---
BLOOD SUGAR CHECK = 169 = 2 UNITS HUMALOG INSULIN ADMINISTERED.
--- NOTE | 2022-07-19 21:30 | NUR ---
PT COMING IN AND OUT FROM THE ROOM AND ASKING FOR FOOD.
[2022-07-19] MEDS: DIVALPROEX 500 MG TABEC PO SCH (21:42)
[2022-07-19] MEDS: traZODone 50 MG TAB PO SCH (21:43)
--- NOTE | 2022-07-20 01:00 | NUR ---
PT DOES NOT SLEEP INSTEAD HE IS COMING IN AND OUT FROM ROOM AND WANDERING IN THE HOLE WAY. PT COMPLAINTS OF MISSING STUFF.
[2022-07-20] MEDS: BLOOD GLUCOSE MONITORING 1 DEV DEV FS SCH ×4 (06:51→20:45)
--- NOTE | 2022-07-20 06:51 | NUR ---
BLOOD SUGAR CHECK = 221 = 4 UNITS INSULIN SLIDING SCALE ADMINISTERED. PT IS ON STABLE CONDITION.
[2022-07-20] MEDS: INSULIN LISPRO 100 UNITS/ML VIAL SUBQ SCH ×3 (06:52→16:30)
--- NOTE | 2022-07-20 07:11 | NUR ---
ASSUMED CONTINUITY OF CARE. INITIAL ASSESSMENT DONE. PT. NON-COMPLIANT. REFUSED IV INSERTION. KEEP COMFORTABLE ON BED. CALL LIGHT WITHIN REACH.
[2022-07-20 08:00] VITALS: BP 124/70
--- NOTE | 2022-07-20 08:00 | NUR ---
Patient's Plan of Care was discussed and reviewed with VP SOFTWARE SUPPORT: ALIS
--- NOTE | 2022-07-20 08:45 | NUR ---
PAGED DR. BUSTAMANTE AND INFORMED THAT PT. DIDN'T HAVE PLT TEST RESULTS FOR THE LAST 2 DAYS, PLT 419 ON 07/18/22, AND ASKED IF LOVENOX 40 MG SUB-Q DAILY WILL BE GIVEN TO PT..
--- NOTE | 2022-07-20 08:50 | NUR ---
CHECKED BLOOD SUGAR 223. LANTUS 25 UNITS SUB-Q WILL BE GIVEN PER MD ORDER.
[2022-07-20] MEDS: cloZAPine 100 MG TAB PO SCH ×2 (08:57→20:39)
[2022-07-20] MEDS: amLODIPine 5 MG TAB PO SCH (08:58)
[2022-07-20] MEDS: NICOTINE TRANSD SYS 7 MG/24 HR PATCH TD SCH (08:58)
[2022-07-20] MEDS: DOCUSATE SODIUM 250 MG GELCAP PO SCH (08:58)
[2022-07-20] MEDS: INSULIN LANTUS 100 UNITS/ML 10 ML VIAL SUBQ SCH (09:00)
--- NOTE | 2022-07-20 09:00 | NUR ---
DR. BUSTAMANTE PAGED BACK AND ORDERED TO GIVE LOVENOX 40 MG SUB-Q ORDERED.
[2022-07-20] MEDS: ENOXAPARIN 40 MG/0.4 ML SYR SUBQ SCH (09:03)
--- NOTE | 2022-07-20 11:07 | NUR ---
DR. BUSTAMANTE CAME REVIEWED P. CHART, INFORMED PT. REFUSAL OF IV INSERTION.
--- NOTE | 2022-07-20 11:15 | NUR ---
DR. BUSTAMANTE SPOKE TO PT. AT THE DOOR. PT. CALM AND COOPERATIVE.
[2022-07-20] MEDS: INSULIN LISPRO SLIDING SCALE 100 UNITS/ML VIAL SUBQ PRN ×2 (11:32→21:23)
[2022-07-20 16:00] VITALS: BP 116/70
--- NOTE | 2022-07-20 19:16 | NUR ---
REPORT GIVEN TO GAETANO HARDING IN STABLE CONDITION.
--- NOTE | 2022-07-20 19:17 | NUR ---
RECEIVED PT FROM MORNING SHIFT NURSE. PT IS AOX1-2, AMBULATORY,ABLE TO VERBALIZE NEEDS AND ABLE TO FOLLOW COMMANDS. [facility]. PT HAS NO IV AND DR. BUSTAMANTE IS AWARE ACCORDING TO THE MORNING NURSE. PT SKIN IS INTACT. ALL SAFETY MEASURES IMPLEMENTED. BED IN LOW POSITION, BED WHEELS ON LOCK AND CALL LIGHT WITHIN REACH.
[2022-07-20 20:00] VITALS: BP 156/100
[2022-07-20] MEDS: DIVALPROEX 500 MG TABEC PO SCH (20:39)
[2022-07-20] MEDS: traZODone 50 MG TAB PO SCH (20:40)
--- NOTE | 2022-07-20 20:40 | NUR ---
ALL SCHEDULED AND PRESCRIBED MEDICATION WAS GIVEN TO PT PER MD ORDER. ALL SAFETY MEASURES IMPLEMENTED. BED IN LOW POSITION, BED WHEELS ON LOCK AND CALL LIGHT WITHIN REACH.
--- NOTE | 2022-07-20 21:23 | NUR ---
PT BLOOD GLUCOSE IS 199. HUMALOG INSULIN 2 UNITS WAS GIVEN TO PT PER MD ORDER. ALL SAFETY MEASURES IMPLEMENTED. BED IN LOW POSITION, BED WHEELS ON LOCK AND CALL LIGHT WITHIN REACH.
--- NOTE | 2022-07-21 | NUR ---
PT WAS GIVEN SODA AND SANDWICH PER PT REQUEST. NO COMPLAIN OF PAIN. NO S/S OF RESPIRATORY DISTRESS NOTED. ALL SAFETY MEASURES IMPLEMENTED. BED IN LOW POSITION, BED WHEELS ON LOCK AND CALL LIGHT WITHIN REACH.
[2022-07-21 01:02] VITALS: BP 150/90
--- NOTE | 2022-07-21 02:00 | NUR ---
REMIND THE PT THAT HE SHOULD SLEEP. PT AGREED AND VERBALIZE THAT HE WILL TRY TO SLEEP.
[2022-07-21 04:00] VITALS: BP 158/98
[2022-07-21] MEDS: BLOOD GLUCOSE MONITORING 1 DEV DEV FS SCH ×4 (06:40→21:29)
[2022-07-21] MEDS: INSULIN LISPRO 100 UNITS/ML VIAL SUBQ SCH ×3 (06:40→17:20)
[2022-07-21] MEDS: INSULIN LISPRO SLIDING SCALE 100 UNITS/ML VIAL SUBQ PRN ×2 (06:42→12:11)
--- NOTE | 2022-07-21 07:08 | NUR ---
PT IS STABLE. ENDORSED PT TO MORNING SHIFT NURSE FOR CONTINUITY OF CARE.
--- NOTE | 2022-07-21 07:10 | NUR ---
ASSUMED CONTINUITY OF CARE. INITIAL ASSESSMENT DONE. RE-ORIENTED TO EVENTS AND SURROUNDINGS. CALL LIGHT WITHIN REACH.
[2022-07-21 08:00] VITALS: BP 121/84
--- NOTE | 2022-07-21 08:00 | NUR ---
Patient's Plan of Care was discussed and reviewed with INSTRUMENT LENS GRINDER: ALIS
--- NOTE | 2022-07-21 09:13 | NUR ---
BLOOD SUGAR 162. WILL GIVE LANTUS 25 UNITS SUB-Q PER MD ORDER.
[2022-07-21] MEDS: cloZAPine 100 MG TAB PO SCH ×2 (09:16→21:26)
[2022-07-21] MEDS: DOCUSATE SODIUM 250 MG GELCAP PO SCH (09:16)
[2022-07-21] MEDS: amLODIPine 5 MG TAB PO SCH (09:16)
[2022-07-21] MEDS: NICOTINE TRANSD SYS 7 MG/24 HR PATCH TD SCH (09:17)
[2022-07-21] MEDS: ENOXAPARIN 40 MG/0.4 ML SYR SUBQ SCH (09:20)
[2022-07-21] MEDS: INSULIN LANTUS 100 UNITS/ML 10 ML VIAL SUBQ SCH (09:25)
--- NOTE | 2022-07-21 15:00 | NUR ---
SLEEPING IN COMFORTABLE POSITION. NO DISCOMFORT NOTICED. SIDE RAILS UP X2. CALL LIGHT WITHIN REACH.
[2022-07-21 16:00] VITALS: BP 109/64
--- NOTE | 2022-07-21 17:40 | NUR ---
CALM, QUIET, EATING DINNER AT THIS TIME. CONTINUE MONITORING.
--- NOTE | 2022-07-21 19:17 | NUR ---
REPORT GIVE TO KARYNA VALENTINE. IN STABLE CONDITION.
--- NOTE | 2022-07-21 19:30 | NUR ---
OPENING NOTES: Patient was received from AM shift nurse during change of shift. Patient was in bed resting within no noted s/s of distress, with chest rise even and unlabored on RA. No PIV is noted in place and as per report MD is aware. Safety measures are in place as per protocol. Will resume care and continue to monitor throughout the shift.
[2022-07-21 20:00] VITALS: BP 124/60
[2022-07-21] MEDS: traZODone 50 MG TAB PO SCH (21:25)
[2022-07-21] MEDS: DIVALPROEX 500 MG TABEC PO SCH (21:25)
--- NOTE | 2022-07-22 | NUR ---
STILL AWAKE , TRYING TO WALK IN THE LIND WAY - WILL GIVE MELATONIN . Addendum: 07/23/22 at 0744 by Ирина Salazar RN THE ABOVE NURSE'S NOTE IS DATE ERROR , INSTEAD OF - SOTO
[2022-07-22 01:30] VITALS: BP 132/88
[2022-07-22] MEDS: INSULIN LISPRO 100 UNITS/ML VIAL SUBQ SCH ×3 (06:47→16:30)
[2022-07-22] MEDS: BLOOD GLUCOSE MONITORING 1 DEV DEV FS SCH ×4 (06:47→22:21)
--- NOTE | 2022-07-22 07:20 | NUR ---
RECEIVED PATIENT FROM PM SHIFT RN FOR CONTINUITY OF CARE.
[2022-07-22] MEDS: NICOTINE TRANSD SYS 7 MG/24 HR PATCH TD SCH (09:12)
[2022-07-22] MEDS: amLODIPine 5 MG TAB PO SCH (09:13)
[2022-07-22] MEDS: DOCUSATE SODIUM 250 MG GELCAP PO SCH (09:13)
[2022-07-22] MEDS: cloZAPine 100 MG TAB PO SCH ×2 (09:20→22:06)
[2022-07-22 09:35] LABS: BASOPHILS # (AUTO) 0.1 K/uL (0.00-0.22); BASOPHILS % (AUTO) 0.8 % (0.0-2.0); EOSINOPHILS # (AUTO) 0.2 K/uL (0-0.4); HEMATOCRIT 38.6 % (36-52); HEMOGLOBIN 12.8 g/dL (12.0-18.0); LYMPHOCYTES # (AUTO) 3.6 K/uL (2.0-11.5); LYMPHOCYTES % (AUTO) 37.8 % (20.5-51.1); MEAN CORPUSCULAR HEMOGLOBIN 30 pg (27-31); MEAN CORPUSCULAR HGB CONC 33 g/dL (33-37); MEAN CORPUSCULAR VOLUME 91.8 fL (80-94); MONOCYTES # (AUTO) 0.8 K/uL (0.8-1.0); MONOCYTES % (AUTO) 8.4 % (1.7-9.3); NEUTROPHILS # (AUTO) 4.8 K/uL (1.8-7.7); PLATELET COUNT (AUTO) 433 K/uL (140-450); RED CELL DISTRIBUTION WIDTH 14.6 % (11.6-13.7); WHITE BLOOD COUNT (AUTO) 9.5 K/uL (4.8-10.8)
[2022-07-22] MEDS: ENOXAPARIN 40 MG/0.4 ML SYR SUBQ SCH (09:35)
[2022-07-22] MEDS: INSULIN LANTUS 100 UNITS/ML 10 ML VIAL SUBQ SCH (09:42)
[2022-07-22 10:29] VITALS: BP 106/69
--- NOTE | 2022-07-22 13:00 | NUR ---
PATIENT SEEN. PATIENT ASKS TO USE PHONE AND QUESTIONS WHEN HE WILL BE DISCHARGED. RN EXPLAINS CURRENT SITUATION OF PATIENT'S DISCHARGE PROCESS. PATIENT ACKNOWLEDGES. PATIENT MONITORING AND CARE CONTINUED.
--- NOTE | 2022-07-22 15:38 | NUR ---
07/22/22 RD FOLLOW UP COMPLETED PLEASE REFER TO NUTRITION ASSESSMENT UNDER CARE ACTIVITY FOR ESTIMATED NUTRITIONAL NEEDS. 1. CONTINUE ON [id number] DIET TOLERATED 2. MONITOR GI, PO INTAKE, AND NUTRITION RELATED LAB VALUES. 3. RD TO FOLLOW-UP 7 DAYS, LOW RISK REVIEWED BY SRIDHAR ANDRADE RD
[2022-07-22 17:02] VITALS: BP 133/80
--- NOTE | 2022-07-22 18:50 | NUR ---
PATIENT ROUNDS DONE. CLOSING REMARKS WITH PATIENT COMPLETE. PATIENT VITALS STABLES. PATIENT SITTING ON BED WATCHING MOVIE. PATIETN TO BE ENDORSED TO PM NURSE FOR CONTINUITY OF CARE.
[2022-07-22] MEDS: traZODone 50 MG TAB PO SCH (22:06)
[2022-07-22] MEDS: DIVALPROEX 500 MG TABEC PO SCH (22:06)
[2022-07-22] MEDS: INSULIN LISPRO SLIDING SCALE 100 UNITS/ML VIAL SUBQ PRN (22:27)
[2022-07-23] MEDS: MELATONIN 3 MG TAB PO PRN (00:24)
[2022-07-23 01:00] VITALS: BP 112/66
--- NOTE | 2022-07-23 04:00 | NUR ---
SLEEPING , EASILY AROUSABLE . WILL CONT. TO MONITOR .
[2022-07-23] MEDS: BLOOD GLUCOSE MONITORING 1 DEV DEV FS SCH ×4 (06:41→21:59)
--- NOTE | 2022-07-23 06:41 | NUR ---
BS 142 - REFUSED INSULIN SQ - WILL ENDORSE
[2022-07-23 06:49] LABS: ANION GAP 10.7 (8-16); CARBON DIOXIDE 27.2 mmol/L (21-32); CREATININE 0.9 mg/dL (0.6-1.3); POTASSIUM 3.9 mmol/L (3.5-5.1)
--- NOTE | 2022-07-23 07:22 | NUR ---
ENDORSED PT FOR CONT. OF CARE .
[2022-07-23] MEDS: INSULIN LISPRO 100 UNITS/ML VIAL SUBQ SCH ×3 (07:28→18:30)
[2022-07-23 08:00] VITALS: BP 101/53
[2022-07-23] MEDS: INSULIN LANTUS 100 UNITS/ML 10 ML VIAL SUBQ SCH (09:00)
[2022-07-23] MEDS: cloZAPine 100 MG TAB PO SCH ×2 (09:26→22:01)
[2022-07-23] MEDS: NICOTINE TRANSD SYS 7 MG/24 HR PATCH TD SCH (09:27)
[2022-07-23] MEDS: DOCUSATE SODIUM 250 MG GELCAP PO SCH (09:30)
[2022-07-23] MEDS: amLODIPine 5 MG TAB PO SCH (09:30)
[2022-07-23] MEDS: ENOXAPARIN 40 MG/0.4 ML SYR SUBQ SCH (10:16)
[2022-07-23 17:05] VITALS: BP 112/62
--- NOTE | 2022-07-23 19:10 | NUR ---
ENDORSED PT TO NIGHTSARFT NURSE FOR CONTINUITY OF CARE. NO SIGNS OF DISTRESS, NO REPORTS OF PAIN. PT WANTED TO TAKE A SHOWER. SET UP THE SHOWER FOR PT, PROVIDED SHOWER NECESSITIES. ENDORSED TO NIGHTSARFT.
[2022-07-23 20:00] VITALS: BP 166/71
--- NOTE | 2022-07-23 20:00 | NUR ---
PT IS TAKING SHOWER INDEPENDENTLY.
--- NOTE | 2022-07-23 21:00 | NUR ---
BLOOD SUGAR CHECK = 104, NO INSULIN COVERAGE.
[2022-07-23] MEDS: DIVALPROEX 500 MG TABEC PO SCH (22:01)
[2022-07-23] MEDS: traZODone 50 MG TAB PO SCH (22:02)
[2022-07-24 01:02] VITALS: BP 156/71
--- NOTE | 2022-07-24 07:10 | NUR ---
ASSUMED CONTINUITY OF CARE. INITIAL ASSESSMENT DONE. NON-COMPLIANT. STILL REFUSING IV INSERTION. RE-ORIENTED TO EVENTS AND SURROUNDINGS. EXPLAINED USE OF CALL LIGHT/BED/TV/BATHROOM. VERBALIZED UNDERSTANDING. CALL LIGHT WITHIN REACH.
[2022-07-24] MEDS: INSULIN LISPRO 100 UNITS/ML VIAL SUBQ SCH ×3 (07:23→17:18)
[2022-07-24] MEDS: BLOOD GLUCOSE MONITORING 1 DEV DEV FS SCH ×4 (07:24→20:18)
--- NOTE | 2022-07-24 07:24 | NUR ---
PT BLOOD SUGAR = 131, NO COVERAGE.
[2022-07-24 08:00] VITALS: BP 110/66
--- NOTE | 2022-07-24 08:00 | NUR ---
Patient's Plan of Care was discussed and reviewed with MASTER PLANNER: ALIS SEYMOUR
[2022-07-24] MEDS: DOCUSATE SODIUM 250 MG GELCAP PO SCH (08:40)
[2022-07-24] MEDS: amLODIPine 5 MG TAB PO SCH (08:41)
[2022-07-24] MEDS: ENOXAPARIN 40 MG/0.4 ML SYR SUBQ SCH (08:42)
[2022-07-24] MEDS: INSULIN LANTUS 100 UNITS/ML 10 ML VIAL SUBQ SCH (08:52)
[2022-07-24] MEDS: cloZAPine 100 MG TAB PO SCH ×2 (09:52→20:10)
[2022-07-24] MEDS: NICOTINE TRANSD SYS 7 MG/24 HR PATCH TD SCH (09:53)
[2022-07-24 16:00] VITALS: BP 117/82
[2022-07-24] MEDS: INSULIN LISPRO SLIDING SCALE 100 UNITS/ML VIAL SUBQ PRN ×2 (17:17→20:18)
--- NOTE | 2022-07-24 19:18 | NUR ---
REPORT GIVEN TO CHRISTIN VALENTINE. IN STABLE CONDITION.
--- NOTE | 2022-07-24 19:20 | NUR ---
RECEIVED PATIENT FROM AM NURSE FOR CONTINUITY OF CARE.PT IS STABLE
[2022-07-24 20:00] VITALS: BP 138/88
[2022-07-24] MEDS: DIVALPROEX 500 MG TABEC PO SCH (20:11)
[2022-07-24] MEDS: traZODone 50 MG TAB PO SCH (20:11)
[2022-07-24] MEDS: MELATONIN 3 MG TAB PO PRN (22:31)
--- NOTE | 2022-07-25 | NUR ---
PATIENT ASLEEP, ALL SAFETY MEASURES IN PLACE, NO DISTRESS NOTED
[2022-07-25 04:00] VITALS: BP 122/79
[2022-07-25] MEDS: INSULIN LISPRO 100 UNITS/ML VIAL SUBQ SCH ×3 (06:46→16:30)
[2022-07-25] MEDS: BLOOD GLUCOSE MONITORING 1 DEV DEV FS SCH ×4 (06:46→21:00)
[2022-07-25 08:00] VITALS: BP 113/63
--- NOTE | 2022-07-25 08:00 | NUR ---
received patient resting comfortably in bed, not in any form of distress,shift assessment done and documented, patient pending placement at this time.
[2022-07-25] MEDS: INSULIN LANTUS 100 UNITS/ML 10 ML VIAL SUBQ SCH (09:00)
[2022-07-25] MEDS: DOCUSATE SODIUM 250 MG GELCAP PO SCH (09:03)
[2022-07-25] MEDS: cloZAPine 100 MG TAB PO SCH ×2 (09:03→20:15)
[2022-07-25] MEDS: amLODIPine 5 MG TAB PO SCH (09:03)
[2022-07-25] MEDS: NICOTINE TRANSD SYS 7 MG/24 HR PATCH TD SCH (09:04)
[2022-07-25] MEDS: ENOXAPARIN 40 MG/0.4 ML SYR SUBQ SCH (09:09)
[2022-07-25 16:00] VITALS: BP 116/63
[2022-07-25] MEDS: INSULIN LISPRO SLIDING SCALE 100 UNITS/ML VIAL SUBQ PRN (17:47)
--- NOTE | 2022-07-25 19:20 | NUR ---
RECEIVED PT FROM AM NURSE FOR CONTINUITY OF CARE. PT IS STABLE
[2022-07-25 20:00] VITALS: BP 137/86
[2022-07-25] MEDS: traZODone 50 MG TAB PO SCH (20:16)
[2022-07-25] MEDS: DIVALPROEX 500 MG TABEC PO SCH (20:20)
[2022-07-25] MEDS: MELATONIN 3 MG TAB PO PRN (21:46)
[2022-07-26 04:00] VITALS: BP 127/64
[2022-07-26] MEDS: BLOOD GLUCOSE MONITORING 1 DEV DEV FS SCH ×4 (06:30→20:08)
[2022-07-26] MEDS: INSULIN LISPRO 100 UNITS/ML VIAL SUBQ SCH ×3 (06:31→16:30)
--- NOTE | 2022-07-26 07:10 | NUR ---
RECEIVED REPORT FROM CONFIGURATION MANAGER FOR CONTINUITY OF CARE. INITIAL ASSESSMENT DONE. ALERT AND VERBALLY RESPONSIVE. RESP. EVEN AND UNLABORED. NO IV ACCESS. NO C/O PAIN OR DISCOMFORT. CALL LIGHT KEPT WITHIN REACH. WILL CONTINUE TO MONITOR.
[2022-07-26 08:00] VITALS: BP 122/61
[2022-07-26] MEDS: INSULIN LANTUS 100 UNITS/ML 10 ML VIAL SUBQ SCH (08:51)
[2022-07-26] MEDS: ENOXAPARIN 40 MG/0.4 ML SYR SUBQ SCH (08:53)
[2022-07-26] MEDS: DOCUSATE SODIUM 250 MG GELCAP PO SCH (08:55)
[2022-07-26] MEDS: amLODIPine 5 MG TAB PO SCH (08:55)
[2022-07-26] MEDS: NICOTINE TRANSD SYS 7 MG/24 HR PATCH TD SCH (08:56)
[2022-07-26] MEDS: cloZAPine 100 MG TAB PO SCH ×2 (08:57→20:08)
--- NOTE | 2022-07-26 08:57 | NUR ---
SCHEDULED MEDICATIONS GIVEN. TOLERATED WELL.
--- NOTE | 2022-07-26 11:37 | NUR ---
RECEIVED NEW ORDER FROM DR. KRISHNAN. CBC AND PTT. ORDER NOTED AND CARRIED OUT.
--- NOTE | 2022-07-26 12:07 | NUR ---
BS CHECKED 147. SCHEDULED HUMALOG 12 UNITS WAS GIVEN. TOLERATED WELL.
[2022-07-26 12:10] LABS: BASOPHILS % (AUTO) 0.3 % (0.0-2.0); EOSINOPHILS # (AUTO) 0.1 K/uL (0-0.4); EOSINOPHILS % (AUTO) 1.2 % (0.0-4.0); HEMATOCRIT 39.9 % (36-52); HEMOGLOBIN 13.1 g/dL (12.0-18.0); LYMPHOCYTES # (AUTO) 3.7 K/uL (2.0-11.5); LYMPHOCYTES % (AUTO) 32.5 % (20.5-51.1); MEAN CORPUSCULAR HEMOGLOBIN 30 pg (27-31); MEAN CORPUSCULAR HGB CONC 33 g/dL (33-37); MONOCYTES # (AUTO) 0.7 K/uL (0.8-1.0); MONOCYTES % (AUTO) 6.3 % (1.7-9.3); NEUTROPHILS # (AUTO) 6.8 K/uL (1.8-7.7); NEUTROPHILS % (AUTO) 59.7 % (42.2-75.2); PLATELET COUNT (AUTO) 451 K/uL (140-450); RED BLOOD CELL COUNT(AUTO) 4.38 MIL/uL (4.20-6.10); RED CELL DISTRIBUTION WIDTH 14.3 % (11.6-13.7); WHITE BLOOD COUNT (AUTO) 11.4 K/uL (4.8-10.8)
[2022-07-26 16:00] VITALS: BP 141/63
--- NOTE | 2022-07-26 17:33 | NUR ---
BS CHECKED 139. SCHEDULED HUMALOG 12 UNITS WAS GIVEN. TOLERATED WELL.
--- NOTE | 2022-07-26 19:03 | NUR ---
BEDSIDE REPORT GIVEN TO NIGHT NURSE KEILA FOR CONTINUITY OF CARE. REMAINS STABLE.
--- NOTE | 2022-07-26 19:05 | NUR ---
RECEIVED PT SITTING ON HIS BED. DENIES PAIN. NO ACUTE RESPIRATORY DISTRESS. SKIN WARM AND DRY TO TOUCH. BED IN THE LOWEST AND LOCKED POSITION FOR SAFETY, CALL LIGHT IN REACH.
[2022-07-26 20:00] VITALS: BP 142/81
[2022-07-26] MEDS: traZODone 50 MG TAB PO SCH (20:08)
[2022-07-26] MEDS: DIVALPROEX 500 MG TABEC PO SCH (20:08)
[2022-07-26] MEDS: MELATONIN 3 MG TAB PO PRN (21:39)
--- NOTE | 2022-07-27 00:22 | NUR ---
ROUNDING DONE. PT IS ASLEEP. BREATHING EVEN AND UNLABORED. CALL LIGHT WITHIN REACH.
--- NOTE | 2022-07-27 00:23 | NUR ---
ROUNDING DONE. PT IS ASLEEP. BREATHING EVEN AND UNLABORED. CALL LIGHT WITHIN REACH.
[2022-07-27 04:00] VITALS: BP 124/67
--- NOTE | 2022-07-27 04:00 | NUR ---
SHAUNNA SIGNS TAKEN AND DOCUMENTED. VS WITHIN NORMAL LIMITS. PATIENT DENIES PAIN.
[2022-07-27] MEDS: BLOOD GLUCOSE MONITORING 1 DEV DEV FS SCH ×4 (06:33→21:28)
[2022-07-27] MEDS: INSULIN LISPRO 100 UNITS/ML VIAL SUBQ SCH ×3 (06:33→17:50)
--- NOTE | 2022-07-27 06:34 | NUR ---
PATIENT OPENED EYES WHEN BLOOD SUGAR CHECKED DONE-114 MG/DL. NO S/SX OF HYPO/HYPERGLYCEMIA. ALL NEEDS ATTENDED TO. SAFETY PRECAUTIONS MAINTAINED DURING THE SHIFT, CALL LIGHT REMAINS WITHIN REACH.
[2022-07-27 08:00] VITALS: BP 101/73
[2022-07-27] MEDS: INSULIN LANTUS 100 UNITS/ML 10 ML VIAL SUBQ SCH (08:58)
[2022-07-27] MEDS: DOCUSATE SODIUM 250 MG GELCAP PO SCH (08:59)
[2022-07-27] MEDS: NICOTINE TRANSD SYS 7 MG/24 HR PATCH TD SCH (08:59)
[2022-07-27] MEDS: amLODIPine 5 MG TAB PO SCH (09:00)
[2022-07-27] MEDS: cloZAPine 100 MG TAB PO SCH ×2 (09:00→21:22)
[2022-07-27 16:50] VITALS: BP 141/63
--- NOTE | 2022-07-27 18:12 | NUR ---
Pt has slept through most of the shift. Pt walking in halls and directed to go back to room. Risk for elopement. No c/o pain. Awaiting placement.
[2022-07-27 20:00] VITALS: BP 139/94
[2022-07-27] MEDS: traZODone 50 MG TAB PO SCH (21:24)
[2022-07-27] MEDS: DIVALPROEX 500 MG TABEC PO SCH (21:24)
[2022-07-28] MEDS: MELATONIN 3 MG TAB PO PRN (01:17)
--- NOTE | 2022-07-28 01:17 | NUR ---
PT COMPLAINTS OF UNABLE TO SLEEP, SLEEPING MEDICATION ADMINISTERED.
[2022-07-28 04:00] VITALS: BP 122/79
[2022-07-28 08:00] VITALS: BP 119/66
[2022-07-28] MEDS: INSULIN LISPRO 100 UNITS/ML VIAL SUBQ SCH ×3 (08:02→17:25)
[2022-07-28] MEDS: INSULIN LANTUS 100 UNITS/ML 10 ML VIAL SUBQ SCH (08:03)
[2022-07-28] MEDS: BLOOD GLUCOSE MONITORING 1 DEV DEV FS SCH ×4 (08:06→21:27)
[2022-07-28] MEDS: NICOTINE TRANSD SYS 7 MG/24 HR PATCH TD SCH (08:31)
[2022-07-28] MEDS: DOCUSATE SODIUM 250 MG GELCAP PO SCH (08:31)
[2022-07-28] MEDS: cloZAPine 100 MG TAB PO SCH ×2 (08:32→21:13)
[2022-07-28] MEDS: amLODIPine 5 MG TAB PO SCH (08:32)
--- NOTE | 2022-07-28 15:52 | NUR ---
07/28/22 RD FOLLOW UP COMPLETED.PLEASE REFER TO NUTRITION ASSESSMENT UNDER CARE ACTIVITY FOR ESTIMATED NUTRITIONAL NEEDS. 1. CONTINUE ON [id number] DIET TOLERATED 2. MONITOR GI, PO INTAKE, AND NUTRITION RELATED LAB VALUES. 3. RD TO FOLLOW-UP 7 DAYS, LOW RISK CHRISTIN HARRINGTON RD
[2022-07-28 16:00] VITALS: BP 126/82
--- NOTE | 2022-07-28 17:51 | NUR ---
Circular conversation throughout the day of the patient wanting to leave, not understanding why he can't return to previous residence, not understanding that he has a conservator. Pt wanted to take a taxi to leave. Blood glucose at noon was 89. Insulin held. Pt showered today.
[2022-07-28 20:00] VITALS: BP 135/89
[2022-07-28] MEDS: DIVALPROEX 500 MG TABEC PO SCH (21:14)
[2022-07-28] MEDS: traZODone 50 MG TAB PO SCH (21:14)
--- NOTE | 2022-07-28 21:27 | NUR ---
BLOOD SUGAR CHECKED = 95. NO INSULIN COVERAGE.
[2022-07-29] MEDS: MELATONIN 3 MG TAB PO PRN (00:53)
--- NOTE | 2022-07-29 00:53 | NUR ---
PT COMPLAINTS OF UNABLE TO SLEEP. SLEEPING PILL MELATONIN ADMINISTERED ORDER.
[2022-07-29 04:00] VITALS: BP 110/67
--- NOTE | 2022-07-29 05:30 | NUR ---
PT IS ASLEEP. NO SOB OR DISTRESS.
[2022-07-29] MEDS: BLOOD GLUCOSE MONITORING 1 DEV DEV FS SCH ×4 (06:35→22:39)
--- NOTE | 2022-07-29 06:36 | NUR ---
BLOOD SUGAR = 94, NO INSULIN COVERAGE.
--- NOTE | 2022-07-29 08:00 | NUR ---
Per report from ROSANA RN EE, 12u Shelby held d/t BS=94.
[2022-07-29] MEDS: INSULIN LANTUS 100 UNITS/ML 10 ML VIAL SUBQ SCH (09:00)
[2022-07-29] MEDS: amLODIPine 5 MG TAB PO SCH (09:00)
--- NOTE | 2022-07-29 09:55 | NUR ---
BP=95/53, HELD [facility] THIS AM.
[2022-07-29] MEDS: INSULIN LISPRO 100 UNITS/ML VIAL SUBQ SCH ×2 (11:05→16:30)
[2022-07-29] MEDS: cloZAPine 100 MG TAB PO SCH ×2 (11:06→22:41)
[2022-07-29] MEDS: DOCUSATE SODIUM 250 MG GELCAP PO SCH (11:07)
[2022-07-29] MEDS: NICOTINE TRANSD SYS 7 MG/24 HR PATCH TD SCH ×2 (11:07→11:35)
--- NOTE | 2022-07-29 14:45 | NUR ---
PET team hear to assess pt.
--- NOTE | 2022-07-29 21:00 | NUR ---
BLOOD SUGAR CHECK = 144, NO INSULIN COVERAGE.
--- NOTE | 2022-07-29 21:00 | NUR ---
BLOOD GLUCOSE FOR 1630 ITS ON DAY SHIFT SCHEDULE.
[2022-07-29] MEDS: traZODone 50 MG TAB PO SCH (22:41)
[2022-07-29] MEDS: DIVALPROEX 500 MG TABEC PO SCH (22:42)
[2022-07-30 06:33] LABS: ANION GAP 11.8 (8-16); CARBON DIOXIDE 26.2 mmol/L (21-32); CREATININE 0.8 mg/dL (0.6-1.3)
--- NOTE | 2022-07-30 07:00 | NUR ---
BLOOD SUGAR CHECK = 113, NO INSULIN COVERAGE. PT IS IN STABLE CONDITION. PATIENT IS AMBULATING IN THE LIND WAY WITH NO ASSISTANCE
[2022-07-30] MEDS: INSULIN LISPRO 100 UNITS/ML VIAL SUBQ SCH ×3 (07:30→16:30)
[2022-07-30 08:00] VITALS: BP 127/82
[2022-07-30 08:42] VITALS: BP 110/67
[2022-07-30] MEDS: NICOTINE TRANSD SYS 7 MG/24 HR PATCH TD SCH (09:43)
[2022-07-30] MEDS: cloZAPine 100 MG TAB PO SCH ×2 (09:43→20:56)
[2022-07-30] MEDS: amLODIPine 5 MG TAB PO SCH (09:43)
[2022-07-30] MEDS: DOCUSATE SODIUM 250 MG GELCAP PO SCH (09:43)
[2022-07-30] MEDS: INSULIN LANTUS 100 UNITS/ML 10 ML VIAL SUBQ SCH (09:43)
[2022-07-30] MEDS: BLOOD GLUCOSE MONITORING 1 DEV DEV FS SCH ×3 (11:30→20:55)
--- NOTE | 2022-07-30 15:07 | NUR ---
LINEN CHANGE DONE, PT. REFUSED BED BATH AND ORAL CARE
[2022-07-30 17:02] VITALS: BP 117/85
--- NOTE | 2022-07-30 18:57 | NUR ---
PT.'S SISTER SUZIE [phone]
--- NOTE | 2022-07-30 20:00 | NUR ---
RECEIVED PATIENT FROM AM NURSE FOR CONTINUITY OF CARE.PT IS STABLE
[2022-07-30] MEDS: DIVALPROEX 500 MG TABEC PO SCH (20:56)
[2022-07-30] MEDS: traZODone 50 MG TAB PO SCH (21:03)
[2022-07-31] VITALS: BP 112/80
[2022-07-31 04:00] VITALS: BP 119/65
[2022-07-31] MEDS: BLOOD GLUCOSE MONITORING 1 DEV DEV FS SCH ×4 (05:41→20:41)
[2022-07-31] MEDS: INSULIN LISPRO 100 UNITS/ML VIAL SUBQ SCH ×3 (05:41→16:30)
--- NOTE | 2022-07-31 06:29 | NUR ---
PT IS STABLE. NO ACUTE EVENT THROUGHOUT THE NIGHT. NO S/SX OF DISTRESS AT THIS MOMENT. NO COMPLAINS OF PAIN. ALL NEEDS MET.ALL PRECAUTIONS IN PLACE. CALL LIGHT WITHIN REACH. WILL ENDORSE TO DAY SHIFT NURSE.
--- NOTE | 2022-07-31 06:30 | NUR ---
BLOOD SUGAR WAS 147. NO COVERAGE NEEDED.
--- NOTE | 2022-07-31 07:00 | NUR ---
RECEIVED REPORT FROM DEMI CHEF FRO CONTINUITY OF CARE. ALERT AND ORIENTED X 3. RESP. EVEN AND UNLABORED. NO IV ACCESS, MD AWARE. NO C/O PAIN OR DISCOMFORT. CALL LIGHT KEPT WITHIN REACH. WILL CONTINUE TO MONITOR.
[2022-07-31 08:00] VITALS: BP 129/63
[2022-07-31] MEDS: INSULIN LANTUS 100 UNITS/ML 10 ML VIAL SUBQ SCH (08:29)
[2022-07-31] MEDS: DOCUSATE SODIUM 250 MG GELCAP PO SCH (08:35)
[2022-07-31] MEDS: amLODIPine 5 MG TAB PO SCH (08:35)
[2022-07-31] MEDS: cloZAPine 100 MG TAB PO SCH ×2 (08:35→20:34)
--- NOTE | 2022-07-31 08:35 | NUR ---
SCHEDULED PO MEDICATIONS GIVEN. TOLERATED WELL.
[2022-07-31] MEDS: NICOTINE TRANSD SYS 7 MG/24 HR PATCH TD SCH (08:44)
--- NOTE | 2022-07-31 12:07 | NUR ---
BS CHECKED 103. NO INSULIN NEED. SCHEDULED HUMALOG 12 UNITS WAS NOT GIVEN, HOLD PER PARAMETER.
[2022-07-31 16:00] VITALS: BP 99/68
--- NOTE | 2022-07-31 17:28 | NUR ---
BS CHECKED 132. NO COVERAGE NEEDED. SCHEDULED HUMALOG 12 UNITS NOT GIVEN. HOLD PER PARAMETER.
--- NOTE | 2022-07-31 19:22 | NUR ---
BEDSIDE REPORT GIVEN TO NIGHT NURSE CHERRISE FOR CONTINUITY OF CARE. REMAINS STABLE.
--- NOTE | 2022-07-31 19:23 | NUR ---
RECEIVED REPORT FROM MORNING SHIFT NURSE. PT IS AOX2-3, AMBULATORY, ABLE TO VERBALIZE NEEDS AND ABLE TO FOLLOW COMMANDS. PT IS ON ROOM AIR AND ON CCHO DIET. PT HAS NO IV, MD IS AWARE. PT SKIN IS INTACT. PT DENIES PAIN AND NO S/S OF RESPIRATORY DISTRESS NOTED. ALL SAFETY MEASURES IMPLEMENTED. BED IN LOW POSITION AND CALL LIGHT WITHIN REACH.
[2022-07-31] MEDS: DIVALPROEX 500 MG TABEC PO SCH (20:34)
[2022-07-31] MEDS: traZODone 50 MG TAB PO SCH (20:35)
--- NOTE | 2022-07-31 20:35 | NUR ---
ALL SCHEDULED AND PRESCRIBED MEDICATION WAS GIVEN TO PT PER MD ORDER. ALL SAFETY MEASURES IMPLEMENTED. BED IN LOW POSITION AND CALL LIGHT WITHIN REACH.
--- NOTE | 2022-07-31 20:41 | NUR ---
PT BLOOD GLUCOSE IS 109. NO INSULIN COVERAGE NEEDED.
--- NOTE | 2022-07-31 22:00 | NUR ---
PT WAS GIVEN SANDWICH PER PT REQUEST. NO COMPLAIN OF PAIN AT THIS TIME. NO S/S OF RESPIRATORY DISTRESS NOTED. ALL SAFETY MEASURES IMPLEMENTED. BED IN LOW POSITION, BED WHEELS ON LOCK AND CALL LIGHT WITHIN REACH.
--- NOTE | 2022-08-01 | NUR ---
PT IS GOING OUTSIDE THE ROOM. REMINDED THE PT TO GO BACK TO THE ROOM AND SLEEP. PT VERBALIZE UNDERSTANDING. ALL SAFETY MEASURES IMPLEMENTED. BED IN LOW POSITION, BED WHEELS ON LOCK AND CALL LIGHT WITHIN REACH.
[2022-08-01 01:02] VITALS: BP 105/69
--- NOTE | 2022-08-01 02:00 | NUR ---
PT WAS GIVEN JELLO PER PT REQUEST. REMINDED PT TO SLEEP. NO COMPLAIN OF PAIN. NO S/S OF RESPIRATORY DISTRESS NOTED. ALL SAFETY MEASURES IMPLEMENTED. BED IN LOW POSITION, BED WHEELS ON LOCK AND CALL LIGHT WITHIN REACH.
--- NOTE | 2022-08-01 04:00 | NUR ---
CHECKED THE PT, STILL ON SLEEP. CHEST RISE AND FALL SYMMETRICALLY NOTED. RESPIRATION IS EVEN AND UNLABORED. ALL SAFETY MEASURES IMPLEMENTED. BED IN LOW POSITION, BED WHEELS ON LOCK AND CALL LIGHT WITHIN REACH.
[2022-08-01] MEDS: BLOOD GLUCOSE MONITORING 1 DEV DEV FS SCH ×4 (06:33→20:56)
[2022-08-01] MEDS: INSULIN LISPRO 100 UNITS/ML VIAL SUBQ SCH ×3 (06:34→16:30)
--- NOTE | 2022-08-01 06:34 | NUR ---
PT GLUCOSE IS 99. HUMALOG 12 UNITS WAS NOT GIVEN TO PT.
--- NOTE | 2022-08-01 07:10 | NUR ---
BEDSIDE REPORT RECEIVED FROM REEL SYSTEM OPERATOR FOR CONTINUITY OF CARE. ALERT AND ORIENTED X 4. RESP. EVEN AND UNLABORED. NO IV ACCESS. NO C/O PAIN OR DISCOMFORT. CALL LIGHT KEPT WITHIN REACH. WILL CONTINUE TO MONITOR.
[2022-08-01 08:00] VITALS: BP 127/72
[2022-08-01] MEDS: amLODIPine 5 MG TAB PO SCH (08:55)
[2022-08-01] MEDS: DOCUSATE SODIUM 250 MG GELCAP PO SCH (08:56)
[2022-08-01] MEDS: cloZAPine 100 MG TAB PO SCH ×2 (08:56→20:53)
[2022-08-01] MEDS: NICOTINE TRANSD SYS 7 MG/24 HR PATCH TD SCH (08:56)
--- NOTE | 2022-08-01 08:56 | NUR ---
SCHEDULED MEDICATIONS GIVEN. BS CHECKED 143. SCHEDULED LANTUS 25 UNITS GIVEN. TOLERATED WELL.
[2022-08-01] MEDS: INSULIN LANTUS 100 UNITS/ML 10 ML VIAL SUBQ SCH (09:01)
--- NOTE | 2022-08-01 11:42 | NUR ---
BS CHECKED 148. NO COVERAGE NEEDED. SCHEDULED HUMALOG 12 UNITS NOT GIVEN, HOLD PER PARAMETER.
[2022-08-01 16:00] VITALS: BP 118/70
--- NOTE | 2022-08-01 19:10 | NUR ---
BEDSIDE REPORT GIVEN TO DOUBLE END TRIMMER PAUL FOR CONTINUITY OF CARE. REMAINS STABLE.
--- NOTE | 2022-08-01 19:11 | NUR ---
RECD. SITTING ON THE BED, AWAKE, A/OX2. RESPIRATION EVEN AND UNLABORED. NO IV LINE, MD AWARE. ABLE TO AMBULATE TO THE BR. REFUSED TO CHANGED INTO [facility]. DENIES PAIN 0/10.
--- NOTE | 2022-08-01 20:00 | NUR ---
OUT OF HIS ROOM AND AMBULATING IN THE HALLWAY. ASSISTED TO GO BACK TO HIS ROOM. ADVISED TO STAY INSIDE.
[2022-08-01] MEDS: traZODone 50 MG TAB PO SCH (20:52)
[2022-08-01] MEDS: DIVALPROEX 500 MG TABEC PO SCH (20:52)
--- NOTE | 2022-08-01 21:00 | NUR ---
Patient's Plan of Care was discussed and reviewed with HOT TAR ROOFER HELPER: PAUL ANDREA
--- NOTE | 2022-08-01 22:30 | NUR ---
AMBULATES AGAIN FOR THE FOURTH TIME TO THE HALLWAY. ASSISTED BACK TO HIS ROOM.
[2022-08-01] MEDS: MELATONIN 3 MG TAB PO PRN (23:12)
--- NOTE | 2022-08-01 23:12 | NUR ---
UNABLE TO SLEEP, MEDICATED WITH MELATONIN PER MD ORDER.
[2022-08-02] VITALS: BP 149/83
--- NOTE | 2022-08-02 | NUR ---
SLEEPING COMFORTABLY IN BED. RESPIRATION EVEN AND UNLABORED.
--- NOTE | 2022-08-02 00:30 | NUR ---
WOKE UP AND WENT OUT OF THE ROOM, ASSISTED BACK TO BED AND ADVISED TO GO BACK TO SLEEP.
--- NOTE | 2022-08-02 02:30 | NUR ---
AWAKE AGAIN AND OUT OF THE ROOM REQUESTING FOR PUDDING. ENCOURAGED TO GO BACK TO SLEEP AND PUDDING WILL BE GIVEN, AGREED.
--- NOTE | 2022-08-02 04:00 | NUR ---
SLEEPING COMFORTABLY IN BED, RESPIRATION EVEN AND UNLABORED.
--- NOTE | 2022-08-02 07:10 | NUR ---
CONDITION REMAIN STABLE. ENDORSED TO AM SHIFT NURSE FOR CONTINUITY OF CARE.
--- NOTE | 2022-08-02 07:10 | NUR ---
RECEIVED BEDSIDE REPORT FROM JAWBONE PULLER FOR CONTINUITY OF CARE. ASLEEP AT THIS TIME. NO IV ACCESS, MD AWARE. PENDING SNF PLACEMENT. CALL LIGHT KEPT WITHIN REACH. WILL MONITOR CLOSELY.
[2022-08-02] MEDS: INSULIN LISPRO 100 UNITS/ML VIAL SUBQ SCH ×3 (07:30→16:30)
[2022-08-02] MEDS: BLOOD GLUCOSE MONITORING 1 DEV DEV FS SCH ×4 (07:35→20:44)
[2022-08-02 08:00] VITALS: BP 110/73
--- NOTE | 2022-08-02 08:00 | NUR ---
REVIEWED AND DISCUSSED PLAN OF CARE WITH ESTEPHANIE TRONCOSO. PT IN STABLE CONDITION.
[2022-08-02] MEDS: cloZAPine 100 MG TAB PO SCH ×2 (09:03→20:44)
[2022-08-02] MEDS: amLODIPine 5 MG TAB PO SCH (09:03)
[2022-08-02] MEDS: DOCUSATE SODIUM 250 MG GELCAP PO SCH (09:03)
--- NOTE | 2022-08-02 09:03 | NUR ---
SCHEDULED MEDICATIONS GIVEN. BS CHECKED 116. SCHEDULED LANTUS 25 UNITS GIVEN. TOLERATED WELL.
[2022-08-02] MEDS: NICOTINE TRANSD SYS 7 MG/24 HR PATCH TD SCH (09:05)
[2022-08-02] MEDS: INSULIN LANTUS 100 UNITS/ML 10 ML VIAL SUBQ SCH (09:11)
--- NOTE | 2022-08-02 11:37 | NUR ---
BS CHECKED 142. NO COVERAGE NEEDED. SCHEDULED HUMALOG ON HOLD PER PARAMETER.
[2022-08-02 16:00] VITALS: BP 104/63
--- NOTE | 2022-08-02 17:06 | NUR ---
BS CHECKED 106. NO COVERAGE NEEDED. SCHEDULED HUMALOG 12 UNITS ON HOLD, PER PARAMETER.
--- NOTE | 2022-08-02 19:06 | NUR ---
BEDSIDE REPORT GIVEN TO SECTION FOREST FIRE WARDEN FOR CONTINUITY OF CARE. REMAINS STABLE.
--- NOTE | 2022-08-02 19:30 | NUR ---
RECEIVED PATIENT FROM AM NURSE FOR CONTINUITY OF CARE.PT IS STABLE
[2022-08-02 20:00] VITALS: BP 121/74
[2022-08-02] MEDS: traZODone 50 MG TAB PO SCH (20:44)
[2022-08-02] MEDS: DIVALPROEX 500 MG TABEC PO SCH (20:44)
--- NOTE | 2022-08-02 21:00 | NUR ---
BLOOD SUGAR WAS 130. NO COVERAGE NEEDED.
--- NOTE | 2022-08-02 23:00 | NUR ---
OUT OF HIS ROOM AND AMBULATING IN THE HALLWAY MULTIPLE TIMES. TOLD PT TO GO BACK TO HIS ROOM. ADVISED TO STAY INSIDE.SANDWICH GIVEN AND PUDDING GIVEN PER PT REQUEST.
--- NOTE | 2022-08-03 00:33 | NUR ---
PT WANDERING AROUND HALLWAYS. 2 CHOCOLATE PUDDINGS REQUESTED. INSTRUCTED TO GO BACK TO ROOM.
[2022-08-03 04:00] VITALS: BP 150/69
[2022-08-03] MEDS: BLOOD GLUCOSE MONITORING 1 DEV DEV FS SCH ×4 (06:51→20:41)
[2022-08-03] MEDS: INSULIN LISPRO 100 UNITS/ML VIAL SUBQ SCH ×3 (06:51→16:30)
--- NOTE | 2022-08-03 06:52 | NUR ---
pt blood sugar was 109. held scheduled insulin. will continue to monitor.
--- NOTE | 2022-08-03 07:19 | NUR ---
RECEIVED PT FROM CLINICAL GENETICIST NURSE FOR CONTINUITY OF CARE. PT IN BED, AWAKE AOX4. RESPIRATIONS EVEN AND UNLABORED ON RA. SKIN WARM AND DRY. NO IV ACCESS. CALL LIGHT WITHIN REACH. ALL SAFETY PRECAUTIONS IN PLACE.
[2022-08-03 08:00] VITALS: BP 116/74
--- NOTE | 2022-08-03 08:00 | NUR ---
Patient's Plan of Care was discussed and reviewed with PRECISION INSTRUMENT AND TOOL MAKER: DELIO CHAVES
[2022-08-03] MEDS: DOCUSATE SODIUM 250 MG GELCAP PO SCH (09:16)
[2022-08-03] MEDS: amLODIPine 5 MG TAB PO SCH (09:16)
[2022-08-03] MEDS: INSULIN LANTUS 100 UNITS/ML 10 ML VIAL SUBQ SCH (09:37)
[2022-08-03] MEDS: cloZAPine 100 MG TAB PO SCH ×2 (09:42→20:38)
[2022-08-03] MEDS: NICOTINE TRANSD SYS 7 MG/24 HR PATCH TD SCH (09:43)
--- NOTE | 2022-08-03 10:07 | NUR ---
08/03/22 RD FOLLOW UP COMPLETED PLEASE REFER TO NUTRITION ASSESSMENT UNDER CARE ACTIVITY FOR ESTIMATED NUTRITIONAL NEEDS. 1. CONTINUE ON [id number] DIET TOLERATED 2. RD TO FOLLOW-UP 7 DAYS, LOW RISK SRIDHAR ANDRADE RD
[2022-08-03 16:00] VITALS: BP 129/73
[2022-08-03] MEDS: INSULIN LISPRO SLIDING SCALE 100 UNITS/ML VIAL SUBQ PRN (16:31)
--- NOTE | 2022-08-03 19:13 | NUR ---
ENDORSED PT TO AERIAL APPLICATOR PILOT NURSE FOR CONTINUITY OF CARE. PT IS STABLE.
--- NOTE | 2022-08-03 19:14 | NUR ---
RECD. PATIENT AMBULATING IN THE ROOM, AWAKE, A/OX2. RESPIRATION EVEN AND UNLABORED. NO IV LINE. GOES IN AND OUT OF HIS ROOM, NEED TO BE ALWAYS MONITORED BY NURSE TO BE ASSISTED TO GO BACK TO HIS ROOM. DENIES PAIN 0/10.
[2022-08-03 20:00] VITALS: BP 144/95
[2022-08-03] MEDS: DIVALPROEX 500 MG TABEC PO SCH (20:36)
[2022-08-03] MEDS: traZODone 50 MG TAB PO SCH (20:37)
--- NOTE | 2022-08-03 20:37 | NUR ---
ASSISTED BACK TO BED, SCHEDULED MEDICATIONS ADMINISTERED. SNACK FOR THE NIGHT GIVEN.
[2022-08-03] MEDS: MELATONIN 3 MG TAB PO PRN (22:06)
--- NOTE | 2022-08-03 22:06 | NUR ---
WANDERING NEAR NURSES STATION, UNABLE TO SLEEP. MEDICATED WITH MELATONIN PER MD ORDER.
--- NOTE | 2022-08-03 22:28 | NUR ---
Patient's Plan of Care was discussed and reviewed with PROJECT ACCOUNTANT: PAUL ANDREA
--- NOTE | 2022-08-04 | NUR ---
OUT OF BED AGAIN, ASSISTED BACK TO BED AND ADVISED TO GO TO SLEEP.
--- NOTE | 2022-08-04 02:00 | NUR ---
SLEEPING COMFORTABLY IN BED. RESPIRATION EVEN AND UNLABORED.
--- NOTE | 2022-08-04 04:00 | NUR ---
SLEEPING ON HIS LEFT SIDE, NO APPEARANCE OF DISTRESS OR PAIN NOTED, 0/10.
[2022-08-04] MEDS: BLOOD GLUCOSE MONITORING 1 DEV DEV FS SCH ×4 (07:17→21:09)
[2022-08-04 07:25] LABS: ANION GAP 11.9 (8-16); CARBON DIOXIDE 27.8 mmol/L (21-32); CREATININE 0.7 mg/dL (0.6-1.3); POTASSIUM 3.7 mmol/L (3.5-5.1)
--- NOTE | 2022-08-04 07:25 | NUR ---
CONDITION REMAIN STABLE. ENDORSED TO DELIA CUADRA FOR CONTINUITY OF CARE.
[2022-08-04 08:00] VITALS: BP 111/51
[2022-08-04] MEDS: INSULIN LISPRO 100 UNITS/ML VIAL SUBQ SCH ×3 (09:21→16:30)
[2022-08-04] MEDS: cloZAPine 100 MG TAB PO SCH ×2 (09:22→21:11)
[2022-08-04] MEDS: NICOTINE TRANSD SYS 7 MG/24 HR PATCH TD SCH (09:25)
[2022-08-04] MEDS: amLODIPine 5 MG TAB PO SCH (09:26)
[2022-08-04] MEDS: DOCUSATE SODIUM 250 MG GELCAP PO SCH (09:26)
[2022-08-04] MEDS: INSULIN LANTUS 100 UNITS/ML 10 ML VIAL SUBQ SCH (09:27)
[2022-08-04 16:00] VITALS: BP 111/63
--- NOTE | 2022-08-04 19:10 | NUR ---
ENDORSE PATIENT IN STABLE CONDITION TO PM SHIFT NURSE. PATIENT CURRENT HAS NOT IV BLOOD SUGAR ACCUCHECK AROUND 100. PENDING FOR PLACEMENT
--- NOTE | 2022-08-04 19:11 | NUR ---
RECEIVED PATIENT IN BED. PATIENT IS CONFUSED AND WANTS TO CONTINUOUSLY COME OUT OF THE ROOM FOR FOOD. NURSING ESTABLISHED BOUNDARIES AND GOALS. PATIENT HAS BEEN NOTED BY PREVIOUS SHIFT TO WANDER THE HALLWAY POSSIBLE ELOPEMENT RISK. PATIENT IS ALERT TO NAME. PATIENT HAS NOT COMPLAINS OF PAIN/DISCOMFORT. NO NOTED RESPIRATORY DISTRESS AT THIS TIME. AMBULATORY. SIDE RAILS UP X 2 FOR COMFORT AND ADJUSTMENT. CALL LIGHT WITHIN REACH AWARE OF HOW TO USE IT. PATIENT WAS ENCOURAGED REFRAIN FROM GOING INTO OTHER PATIENT ROOMS. [email or web address]
--- NOTE | 2022-08-04 20:00 | NUR ---
Patient's Plan of Care was discussed and reviewed with ESTEPHANIE MARTINEZ.
[2022-08-04] MEDS: DIVALPROEX 500 MG TABEC PO SCH (21:06)
[2022-08-04] MEDS: MELATONIN 3 MG TAB PO PRN (21:06)
[2022-08-04] MEDS: traZODone 50 MG TAB PO SCH (21:07)
--- NOTE | 2022-08-04 22:26 | NUR ---
PATIENT WAS CRYING WITHOUT TEARS AND STATED HE IS HEARING VOICES. NURSING WHAT ARE THE VOICES TELLING HIM, HE WAS UNABLE TO TELL NURSE BUT STATED IT SCARES HIM. NURSING WILL INFORM PRIMARY PHYSICIAN GROUP. [email or web address]
--- NOTE | 2022-08-04 23:08 | NUR ---
NEW ORDERS FOR PSYCH EVALUATION AND AMBIEN 10MG AT NIGHT. [email or web address]
[2022-08-04] MEDS: ZOLPIDEM 10 MG TAB PO SCH (23:51)
--- NOTE | 2022-08-05 00:40 | NUR ---
PATIENT DENIES JESSICA PAIN/DISCOMFORT. NURSING GAVE THE CALL LIGHT INSTRUCTIONS TO CALL NURSING ASSISTANCE. PATIENT WAS EDUCATED ON NOT GOING TO OTHERS ROOM NOT WALK THE HALLWAYS. PATIENT STATED HE UNDERSTANDS BUT NEEDS CONSTANT REMINDING. [email or web address]
--- NOTE | 2022-08-05 02:00 | NUR ---
PATIENT REMAINS AWAKE AND CONTINUES TO COME OUT OF ROOM TO OTHER PATIENT ROOMS OR WALK THE HALLWAYS. PATIENT WAS REDIRECTED BACK TO HIS ROOM. PATIENT IS COMPLAINT TO RETURN BUT WILL GET UP SHORTLY AFTERWARDS. NURSING WILL CONTINUE TO MONITOR FOR SAFETY. [email or web address]
[2022-08-05 04:00] VITALS: BP 132/82
--- NOTE | 2022-08-05 04:31 | NUR ---
PATIENT WAS GIVEN WATER AND SNACKS. EDUCATED ON THE IMPORTANCE OF SUGAR AND BEING A DIABETIC. NO S/S OF PAIN/DISCOMFORT. NO S/S OF RESPIRATORY DISTRESS. CALL LIGHT WITHIN REACH. SIDE RAILS UP X 2. [email or web address]
--- NOTE | 2022-08-05 07:03 | NUR ---
ENDORSED TO DELIA CUADRA, PATIENT WAS STABLE DURING SHIFT REPORT. [email or web address]
[2022-08-05 08:00] VITALS: BP 144/94
[2022-08-05] MEDS: BLOOD GLUCOSE MONITORING 1 DEV DEV FS SCH ×4 (08:30→21:44)
[2022-08-05] MEDS: INSULIN LISPRO SLIDING SCALE 100 UNITS/ML VIAL SUBQ PRN (08:38)
[2022-08-05] MEDS: INSULIN LISPRO 100 UNITS/ML VIAL SUBQ SCH ×3 (08:38→16:30)
[2022-08-05] MEDS: amLODIPine 5 MG TAB PO SCH (08:44)
[2022-08-05] MEDS: DOCUSATE SODIUM 250 MG GELCAP PO SCH (08:44)
[2022-08-05] MEDS: cloZAPine 100 MG TAB PO SCH ×2 (08:45→21:50)
[2022-08-05] MEDS: NICOTINE TRANSD SYS 7 MG/24 HR PATCH TD SCH (08:46)
[2022-08-05] MEDS: INSULIN LANTUS 100 UNITS/ML 10 ML VIAL SUBQ SCH (08:47)
[2022-08-05 16:00] VITALS: BP 146/92
--- NOTE | 2022-08-05 19:05 | NUR ---
RECEIVED REPORT FROM DAY SHIFT NURSE FOR CONTINUITY OF CARE. PT IS AWAKE, ALERT AND ORIENTED X3 BUT REQUIRES CONSTANT REORIENTATION. ON ROOM AIR WITH NO SIGNS OF DISTRESS NOTED. PT HAS NO IV ACCESS AND OVERALL SKIN IS INTACT. PT IS AMBULATORY AND TENDS TO WONDER INTO OTHER PATIENTS ROOMS. CALL LIGHT WITHIN REACH, SAFETY MEASURES IN PLACE. PT ENCOURAGED TO REMAIN IN HIS ROOM. WILL CLOSELY MONITOR AND REORIENT THE PT NEEDED.
--- NOTE | 2022-08-05 19:13 | NUR ---
ENDORSE PATIENT IN STABLE CONDITION TO PM SHIFT NURSE AFTER PATIENT HAD SHOWER TODAY. PATIENT IS AWAITING FOR PLACEMENT W/ NO IV ACCESS.
--- NOTE | 2022-08-05 21:50 | NUR ---
SCHEDULED MEDICATIONS ADMINISTERED WITH NO COMPLICATIONS. PT TOLERATED WELL. BLOOD SUGAR = 101, NO COVERAGE NEEDED. WILL CONTINUE MONITORING THE PT.
[2022-08-05] MEDS: DIVALPROEX 500 MG TABEC PO SCH (21:51)
[2022-08-05] MEDS: traZODone 50 MG TAB PO SCH (21:51)
[2022-08-05] MEDS: ZOLPIDEM 10 MG TAB PO SCH (21:51)
[2022-08-05 22:46] VITALS: BP 144/90
--- NOTE | 2022-08-06 00:05 | NUR ---
PT SLEEPING AT THIS TIME. VISABLE CHEST RISE AND FALL, NO APPARENT SIGNS OF DISTRESS NOTED, WILL CONTINUE MONITORING.
[2022-08-06 04:00] VITALS: BP 100/58
[2022-08-06 06:36] LABS: BASOPHILS # (AUTO) 0.1 K/uL (0.00-0.22); BASOPHILS % (AUTO) 0.5 % (0.0-2.0); EOSINOPHILS # (AUTO) 0.3 K/uL (0-0.4); EOSINOPHILS % (AUTO) 2.4 % (0.0-4.0); HEMATOCRIT 37.5 % (36-52); HEMOGLOBIN 12.2 g/dL (12.0-18.0); LYMPHOCYTES # (AUTO) 5.8 K/uL (2.0-11.5); LYMPHOCYTES % (AUTO) 47.6 % (20.5-51.1); MEAN CORPUSCULAR HEMOGLOBIN 30 pg (27-31); MEAN CORPUSCULAR HGB CONC 33 g/dL (33-37); MEAN CORPUSCULAR VOLUME 90.7 fL (80-94); MONOCYTES # (AUTO) 0.7 K/uL (0.8-1.0); MONOCYTES % (AUTO) 5.5 % (1.7-9.3); NEUTROPHILS # (AUTO) 5.3 K/uL (1.8-7.7); PLATELET COUNT (AUTO) 357 K/uL (140-450); RED BLOOD CELL COUNT(AUTO) 4.13 MIL/uL (4.20-6.10); RED CELL DISTRIBUTION WIDTH 13.4 % (11.6-13.7); WHITE BLOOD COUNT (AUTO) 12.1 K/uL (4.8-10.8)
[2022-08-06] MEDS: BLOOD GLUCOSE MONITORING 1 DEV DEV FS SCH ×2 (06:51→12:04)
--- NOTE | 2022-08-06 07:15 | NUR ---
PT SLEPT WELL THROUGHOUT SHIFT. LAST BLOOD SUGAR LEVEL 105, NO COVERAGE NEEDED. ENDORSED TO DAY SHIFT NURSE IN STABLE CONDITION.
[2022-08-06] MEDS: INSULIN LISPRO 100 UNITS/ML VIAL SUBQ SCH ×2 (07:30→11:30)
--- NOTE | 2022-08-06 07:38 | NUR ---
PT SCHEDULED HUMALOG 12 UNITS HELD DUE TO PT CURRENT BLOOD GLUCOSE LEVEL BEING 105. DAY SHIFT NURSE MADE AWARE.
[2022-08-06 08:00] VITALS: BP 115/59
[2022-08-06] MEDS: cloZAPine 100 MG TAB PO SCH ×2 (09:34→20:06)
[2022-08-06] MEDS: amLODIPine 5 MG TAB PO SCH (09:34)
[2022-08-06] MEDS: NICOTINE TRANSD SYS 7 MG/24 HR PATCH TD SCH (09:34)
[2022-08-06] MEDS: DOCUSATE SODIUM 250 MG GELCAP PO SCH (09:34)
[2022-08-06] MEDS: INSULIN LANTUS 100 UNITS/ML 10 ML VIAL SUBQ SCH (09:35)
--- NOTE | 2022-08-06 11:36 | NUR ---
INFORMED BY TETO PENA THAT PATIENT HAS BEEN ACCEPTED BACK TO [facility] [phone], AND THAT FACILITY WOULD ARRANGE TRANSPORT. CALLED AND GAVE REPORT TO GIACOMO WHO STATES WILL REACH OUT MIX HOUSE TENDER TO ARRANGE TRANSPORT
--- NOTE | 2022-08-06 13:19 | NUR ---
CALLED [facility] TO INQUIRE ABOUT ARRANGING TRANSPORT WAS PASSED OVER TO SILVER CHASER YISSEL, WHO STATES PATIENT HAS BEEN DISCHARGED FROM FACILITY. PASSED PHONE OVER TO CM WHO SPOKE WITH YISSEL, PER YISSEL PATIENT IS CURRENTLY ON WAITLIST. CM TO FOLLOW
--- NOTE | 2022-08-06 14:00 | NUR ---
PT. RESTING IN BED NO DISTRESS AT THIS TIME
[2022-08-06 16:00] VITALS: BP 113/75
[2022-08-06] MEDS: GLIMEPIRIDE 2 MG TAB PO SCH (17:23)
--- NOTE | 2022-08-06 19:05 | NUR ---
RECEIVED REPORT FROM DAY SHIFT NURSE FOR CONTINUITY OF CARE. PT IS AWAKE AT THIS TIME, 100% OF DINNER WAS CONSUMED BUT STILL STATES HE IS HUNGRY. STATES NO PAIN AT THIS TIME. STILL NO IV ACCESS AT THIS TIME. GAVE THE PT A SNACK AND WARM BLANKET, NOW RESTING COMFORTABLY. WILL MAKE FREQUENT ROUNDS THROUGHOUT SHIFT.
[2022-08-06] MEDS: ZOLPIDEM 10 MG TAB PO SCH (20:07)
[2022-08-06] MEDS: DIVALPROEX 500 MG TABEC PO SCH (20:08)
[2022-08-06] MEDS: traZODone 50 MG TAB PO SCH (20:08)
--- NOTE | 2022-08-06 20:20 | NUR ---
SCHEDULED MEDICATIONS ADMINISTERED WITH NO COMPLICATIONS. PT TOLERATED WELL. WILL CONTINUE TO MONITOR THE PT.
--- NOTE | 2022-08-06 23:31 | NUR ---
PT RESTING COMFORTABLE IN BED. EVEN CHEST RISE AND FALL, RESPIRATIONS UNLABORED. WILL CONTINUE MONITORING THE PT.
--- NOTE | 2022-08-07 02:33 | NUR ---
PT STATED HE COULD NOT SLEEP AND WANTED TO TAKE A WALK. WALKED WITH THE PT AROUND THE DEPARTMENT AND SENT HIM BACK TO HIS ROOM. PT FOLLOWED INSTRUCTIONS WELL AND IS NOW RESTING IN BED. WILL CONTINUE TO MONITOR.
[2022-08-07 04:00] VITALS: BP 123/54
--- NOTE | 2022-08-07 05:42 | NUR ---
PT SLEPT MODERATELY WELL DURING THE NIGHT. INTAKE OF 1592ML, OUTPUT OF 2100 ML. PT VOIDED 3 TIMES AND HAD ONE BM.
--- NOTE | 2022-08-07 06:19 | NUR ---
NO ACUTE EVENTS OVERNIGHT, WILL ENDORSE TO DAY SHIFT NURSE IN STABLE CONDITION.
--- NOTE | 2022-08-07 07:10 | NUR ---
RECEIVED REPORT FROM [employer]NER / [employer]YER NURSE FOR CONTINUITY OF CARE. PT STABLE AT THIS TIME AND RESTING IN BED.
[2022-08-07 08:00] VITALS: BP 136/89
[2022-08-07] MEDS: cloZAPine 100 MG TAB PO SCH ×2 (09:22→20:36)
[2022-08-07] MEDS: NICOTINE TRANSD SYS 7 MG/24 HR PATCH TD SCH (09:22)
[2022-08-07] MEDS: amLODIPine 5 MG TAB PO SCH (09:23)
[2022-08-07] MEDS: DOCUSATE SODIUM 250 MG GELCAP PO SCH (09:23)
[2022-08-07] MEDS: GLIMEPIRIDE 2 MG TAB PO SCH ×2 (09:23→16:28)
[2022-08-07 16:00] VITALS: BP 155/76
--- NOTE | 2022-08-07 19:30 | NUR ---
RECEIVED PATIENT FROM DAY SHIFT NURSE JESUS FOR CONTINUITY OF CARE. PATIENT IS A&O X2-3. PATIENT IS ON ROOM AIR; BREATHING IS NORMAL WITH SYMMETRICAL RISE AND FALL OF CHEST. PATIENT HAS NO IV. PATIENT IS AWAKE, WALKING AROUND ROOM. BED IS IN LOWEST POSITION, WHEELS LOCKED, CALL LIGHT IN PLACE. WILL CONTINUE TO OBSERVE PATIENT.
--- NOTE | 2022-08-07 19:34 | NUR ---
ENDORSED TO FIELD SERVICER FOR CONTINUITY OF CARE. PT STABLE AT THIS TIME
[2022-08-07 20:00] VITALS: BP 112/93
[2022-08-07] MEDS: ZOLPIDEM 10 MG TAB PO SCH (20:33)
[2022-08-07] MEDS: DIVALPROEX 500 MG TABEC PO SCH (20:33)
[2022-08-07] MEDS: traZODone 50 MG TAB PO SCH (20:34)
--- NOTE | 2022-08-07 21:47 | NUR ---
ADMINISTERED 2100 MEDICATIONS TO PATIENT. MEDICATIONS ADMINISTERED SUCCESSFULLY WITHOUT ANY ISSUES WITH SWALLOWING. PATIENT IS SITTING IN HIS ROOM WATCHING TV. WILL CONTINUE TO OBSERVE PATIENT.
--- NOTE | 2022-08-08 00:30 | NUR ---
PATIENT FELL ASLEEP AROUND 2300 AND HAS BEEN SLEEPING COMFORTABLY. BREATHING IS NORMAL WITH SYMMETRICAL RISE AND FALL OF CHEST. WILL CONTINUE TO OBSERVE PATIENT.
[2022-08-08 04:00] VITALS: BP 105/53
--- NOTE | 2022-08-08 06:00 | NUR ---
PATIENT HAS SLEPT THROUGHOUT THE NIGHT, LYING SUPINE. BREATHING IS NORMAL WITH SYMMETRICAL RISE AND FALL OF CHEST. WILL CONTINUE TO OBSERVE PATIENT.
--- NOTE | 2022-08-08 07:05 | NUR ---
RECEIVED REPORT FROM [employer] NURSE FOR CONTINUITY OF CARE. PT STABLE AT THIS TIME AND RESTING IN BED.
--- NOTE | 2022-08-08 07:13 | NUR ---
ENDORSED TO DAY SHIFT NURSE JESUS FOR CONTINUITY OF CARE. PATIENT IS STABLE.
[2022-08-08 08:00] VITALS: BP 98/57
[2022-08-08] MEDS: NICOTINE TRANSD SYS 7 MG/24 HR PATCH TD SCH (08:46)
[2022-08-08] MEDS: cloZAPine 100 MG TAB PO SCH ×2 (08:47→21:37)
[2022-08-08] MEDS: DOCUSATE SODIUM 250 MG GELCAP PO SCH (08:47)
[2022-08-08] MEDS: GLIMEPIRIDE 2 MG TAB PO SCH ×2 (08:48→17:22)
[2022-08-08] MEDS: amLODIPine 5 MG TAB PO SCH (08:48)
--- NOTE | 2022-08-08 13:57 | NUR ---
08/08/22 RD FOLLOW UP COMPLETED PLEASE REFER TO NUTRITION ASSESSMENT UNDER CARE ACTIVITY FOR ESTIMATED NUTRITIONAL NEEDS. 1. CONTINUE [id number] DIET TOLERATED 2. RD TO FOLLOW-UP 7 DAYS, LOW RISK REVIEWED BY SRIDHAR ANDRADE RD
[2022-08-08 16:00] VITALS: BP 102/60
--- NOTE | 2022-08-08 19:30 | NUR ---
RECEIVED PATIENT OUT OF BED WALKING ALONG THE HALLWAY. ENCOURAGED PATIENT TO STAY IN BED. NEEDS ATTENDED TO.
--- NOTE | 2022-08-08 19:36 | NUR ---
ENDORSED TO [employer]LE[employer] NURSE FOR CONTINUITY OF CARE. PATIENT IS STABLE.
[2022-08-08] MEDS: DIVALPROEX 500 MG TABEC PO SCH (21:37)
[2022-08-08] MEDS: ZOLPIDEM 10 MG TAB PO SCH (21:37)
--- NOTE | 2022-08-08 21:37 | NUR ---
ALL SCHEDULED MEDICATIONS ADMINISTERED ORDERED. TOLERATED WELL.
[2022-08-08] MEDS: traZODone 50 MG TAB PO SCH (21:38)
[2022-08-09 04:00] VITALS: BP 132/84
--- NOTE | 2022-08-09 07:28 | NUR ---
BEDSIDE REPORT GIVEN TO AM NURSE FOR CONTINUITY OF CARE. PATIENT STABLE.
--- NOTE | 2022-08-09 07:29 | NUR ---
RECEIVED REPORT FROM PAINTER SIGN MAINTENANCE NURSE, ERNIE, FOR CONTINUITY OF CARE. PT IN HIS ROOM AT THIS TIME, PACING AROUND THE ROOM. RESPIRATIONS ARE EVEN AND UNLABORED ON ROOM AIR. NO SIGNS OF DISTRESS NOTED. PT IS ALERT AND ORIENTED X3, ABLE TO FOLLOW COMMANDS, ABLE TO VERBALIZE NEEDS. PT IS ON CCHO DIET, TOLERATING WELL. ABD IS NONTENDER, NONDISTENDED WITH BOWEL SOUNDS PRESENT IN ALL QUADRANTS. PT IS CONTINENT OF BOWEL AND BLADDER, ABLE TO AMBULATE INDEPENDENTLY. PT HAS FULL ROM TO UPPER AND LOWER EXTREMITIES. NO IV ACCESS. PT REFUSES PER PAINTER SIGN MAINTENANCE NURSE. SKIN IS WARM, DRY, AND INTACT. CALL LIGHT WITHIN REACH. ALL SAFETY MEASURES IN PLACE.
[2022-08-09 08:00] VITALS: BP 113/67
[2022-08-09] MEDS: NICOTINE TRANSD SYS 7 MG/24 HR PATCH TD SCH (08:49)
[2022-08-09] MEDS: cloZAPine 100 MG TAB PO SCH ×2 (08:51→21:30)
[2022-08-09] MEDS: GLIMEPIRIDE 2 MG TAB PO SCH ×2 (08:51→17:18)
[2022-08-09] MEDS: DOCUSATE SODIUM 250 MG GELCAP PO SCH (08:52)
[2022-08-09] MEDS: amLODIPine 5 MG TAB PO SCH (08:52)
--- NOTE | 2022-08-09 08:52 | NUR ---
ADMINISTERED SCHEDULED MEDICATIONS. MEDICATION CLOZARIL NOT ADMINISTERED, NURSING JUDGEMENT. PT BP AT THIS TIME IS 113/67 AND PT ALREADY RECEIVING OTHER ANTIHYPERTENSIVE MEDICATIONS. EDUCATED PT ON MEDS ADMINISTERED. PT TOLERATED WELL.
--- NOTE | 2022-08-09 10:15 | NUR ---
PT COMING OUT OF ROOM. REDIRECTED PT BACK INTO ROOM.
--- NOTE | 2022-08-09 11:05 | NUR ---
PT CAME UP TO NURSES STATION, ASKING FOR MORE FOOD. GAVE PT SNACK. RE-DIRECTED PT BACK TO HIS ROOM.
--- NOTE | 2022-08-09 11:36 | NUR ---
PT CONTINUES TO COME OUT OF HIS ROOM. RE-DIRECTED PT BACK TO ROOM.
--- NOTE | 2022-08-09 13:02 | NUR ---
PT ASKING NURSE TO GO INTO HIS ROOM WITH HIM AND MEASURE HIS HEIGHT. RE-DIRECTED PT.
--- NOTE | 2022-08-09 15:14 | NUR ---
PT CAME OUT TO NURSES STATION, ASKING NURSE FOR A RULER. PT NOW WEARING HIS CIVILIAN CLOTHES. INFORMED PT HE NEEDED TO WEAR HIS HOSPITAL GOWN. AND THAT THERE WAS NO RULER AT THE STATION. RE-DIRECTED PT BACK TO HIS ROOM.
--- NOTE | 2022-08-09 17:22 | NUR ---
PT ATTEMPTING TO WALK DOWN THE LIND TO ANOTHER ROOM. RE-DIRECTED PT BACK TO HIS ROOM.
--- NOTE | 2022-08-09 19:26 | NUR ---
ENDORSED PT TO INSULATION ESTIMATOR NURSEERNIE, FOR CONTINUITY OF CARE. PT IS STABLE.
--- NOTE | 2022-08-09 19:48 | NUR ---
PATIENT IN HIS ROOM WALKING AROUND. DENIES PAIN. REMINDED PATIENT NOT TO GO TO OTHER PATIENT ROOM. NEEDS ATTENDED TO.
[2022-08-09 20:00] VITALS: BP 129/86
[2022-08-09] MEDS: DIVALPROEX 500 MG TABEC PO SCH (21:29)
[2022-08-09] MEDS: ZOLPIDEM 10 MG TAB PO SCH (21:29)
--- NOTE | 2022-08-09 21:29 | NUR ---
ADMINISTERED ALL SCHEDULED DUE MEDICATIONS.
[2022-08-09] MEDS: traZODone 50 MG TAB PO SCH (21:30)
[2022-08-10 04:00] VITALS: BP 113/85
--- NOTE | 2022-08-10 07:37 | NUR ---
ENDORSED PATIENT TO RN NINFA FOR CONTINUITY OF CARE. PATIENT IN STABLE CONDITION.
[2022-08-10] MEDS: amLODIPine 5 MG TAB PO SCH (09:00)
[2022-08-10 10:00] VITALS: BP 103/65
[2022-08-10] MEDS: GLIMEPIRIDE 2 MG TAB PO SCH ×2 (10:14→17:00)
[2022-08-10] MEDS: NICOTINE TRANSD SYS 7 MG/24 HR PATCH TD SCH (10:14)
[2022-08-10] MEDS: DOCUSATE SODIUM 250 MG GELCAP PO SCH (10:14)
[2022-08-10] MEDS: cloZAPine 100 MG TAB PO SCH ×2 (10:15→20:18)
[2022-08-10 16:00] VITALS: BP 102/62
--- NOTE | 2022-08-10 18:00 | NUR ---
PT A/OX2-3,HAS BEEN SLEEPING MOST OF THE DAY,BS DECREASED TO 69 MG/DL BEFORE DINNER,GIVE 2 CUPS OF JUICE AND CRACKERS,REPEAT BS POST MEAL 133MG/DL.PT WANDERED AROUND,REDIRECTED AND REORIENTED NEEDED SAFETY MAINTAINED.CONTINUE TO MONITOR PT.
--- NOTE | 2022-08-10 19:30 | NUR ---
RECEIVED REPORT FROM DAY SHIFT RN FOR CONTINUITY OF CARE. PT IS AWAKE AND ALERT. PT IS SITTING BY BEDSIDE NOT IN ANY DISTRESS. BREATHING EVEN AND UNLABORED. NO IV ACCESS. PT REFUSES. SAFETY MEASURES TAKEN. CALL LIGHT WITHIN REACH. WILL CONTINUE TO MONITOR THE PT.
[2022-08-10 20:00] VITALS: BP 128/80
[2022-08-10] MEDS: ZOLPIDEM 10 MG TAB PO SCH (20:17)
[2022-08-10] MEDS: traZODone 50 MG TAB PO SCH (20:17)
[2022-08-10] MEDS: DIVALPROEX 500 MG TABEC PO SCH (20:18)
[2022-08-10] MEDS: MELATONIN 3 MG TAB PO PRN (21:50)
--- NOTE | 2022-08-11 00:27 | NUR ---
PT KEEPS GETTING OUT OF ROOM AND TRYING TO WALK DOWN THE HALLS. PT HAS BEEN RE-ORIENTATED BACK TO ROOM MANY TIMES. NOT IN ANY DISTRESS. WILL CONTINUE TO MONITOR THE PT.
[2022-08-11 04:00] VITALS: BP 128/80
--- NOTE | 2022-08-11 07:23 | NUR ---
ENDORSED PT TO DAY SHIFT RN FOR CONTINUITY OF CARE. PT IS STABLE.
[2022-08-11] MEDS: GLIMEPIRIDE 2 MG TAB PO SCH ×2 (08:00→18:48)
[2022-08-11] MEDS: NICOTINE TRANSD SYS 7 MG/24 HR PATCH TD SCH (10:07)
[2022-08-11] MEDS: DOCUSATE SODIUM 250 MG GELCAP PO SCH (10:08)
[2022-08-11] MEDS: amLODIPine 5 MG TAB PO SCH (10:09)
[2022-08-11] MEDS: cloZAPine 100 MG TAB PO SCH ×2 (10:13→21:50)
--- NOTE | 2022-08-11 11:30 | NUR ---
patient b/s has been checked at 109 bs level, no coverage needed
[2022-08-11] MEDS ORDERED: DEXTROSE 50% 50 ML SYR IVP PRN ×2 (11:55→14:10)
[2022-08-11] MEDS ORDERED: INSULIN LISPRO SLIDING SCALE 100 UNITS/ML VIAL SUBQ PRN (11:55)
[2022-08-11] MEDS ORDERED: ONDANSETRON 4 MG/2 ML VIAL IVP PRN (14:10)
[2022-08-11] MEDS ORDERED: MAGNESIUM OXIDE 400 MG TAB PO PRN (14:10)
[2022-08-11 16:14] VITALS: BP 128/80
[2022-08-11] MEDS: ZOLPIDEM 10 MG TAB PO PRN (16:14)
[2022-08-11] MEDS: BLOOD GLUCOSE MONITORING 1 DEV DEV FS SCH ×2 (16:41→20:11)
--- NOTE | 2022-08-11 20:11 | NUR ---
BLOOD SUGAR CHECKED = 134. NO SLIDING SCALE COVERAGE, NO INSULIN NEEDED.
[2022-08-11] MEDS: DIVALPROEX 500 MG TABEC PO SCH (21:51)
[2022-08-11] MEDS: traZODone 50 MG TAB PO SCH (21:52)
[2022-08-11] MEDS: MELATONIN 3 MG TAB PO PRN (22:44)
--- NOTE | 2022-08-11 22:44 | NUR ---
PT UNABLE TO SLEEP, SLEEP MEDICATION MELATONIN ADMINISTERED ORDER.
--- NOTE | 2022-08-11 23:44 | NUR ---
PT IS STILL AWAKE.
[2022-08-12 04:00] VITALS: BP 107/62
--- NOTE | 2022-08-12 06:30 | NUR ---
BLOOD SUGAR CHECKED = 97, NO COVERAGE OF SLIDING SCALE. PT IS STABLE.
[2022-08-12] MEDS: BLOOD GLUCOSE MONITORING 1 DEV DEV FS SCH ×4 (07:00→21:47)
--- NOTE | 2022-08-12 07:30 | NUR ---
PT IS ON STABLE CONDITION AND IS SLEEPING ON BED BUT AROUSABLE FOR VITAL SIGNS. PT DENIES OF PAIN OF DISCOMFORT. ENDORSED TO DAY SHIFT NURSE JOSÉ MANUEL FOR CONTINUITY OF CARE.
--- NOTE | 2022-08-12 07:31 | NUR ---
RECEIVED REPORT FROM COLLEGE OR UNIVERSITY FACULTY MEMBER NURSE FOR CONTINUITY OF CARE. PT IS ASLEEP, AWAKEN BY NAME. NO SIGNS OF DISTRESS. CALL LIGHT WITHIN REACH.
[2022-08-12] MEDS: amLODIPine 5 MG TAB PO SCH (08:45)
[2022-08-12] MEDS: cloZAPine 100 MG TAB PO SCH ×2 (08:45→21:48)
[2022-08-12] MEDS: DOCUSATE SODIUM 250 MG GELCAP PO SCH (08:46)
[2022-08-12] MEDS: GLIMEPIRIDE 2 MG TAB PO SCH ×2 (08:47→17:19)
[2022-08-12] MEDS: NICOTINE TRANSD SYS 7 MG/24 HR PATCH TD SCH (09:00)
--- NOTE | 2022-08-12 09:30 | NUR ---
PT IS ASLEEP, WOKE UP TO TAKE PO MEDS SCHEDULED. DELAYED HAVING BREAKFAST AND PREFERS TO SLEEP MORE. NO SIGNS OF DISTRESS. CALL LIGHT WITHIN REACH. MNURUM
--- NOTE | 2022-08-12 14:52 | NUR ---
PT IS STILL ASLEEP, LUNCH IS SERVED BUT PREFERS TO SLEEP SOME MORE. NO SIGNS OF DISTRESS, CALL LIGHT WITHIN REACH. MNURUM
--- NOTE | 2022-08-12 19:20 | NUR ---
ENDORSED PT TO HUMAN SERVICES PROGRAM SPECIALIST NURSE FOR CONTINUITY OF CARE. PT IS AWAKE AND NO SIGNS OF DISTRESS, CALL LIGHT WITHIN REACH. MNURUM
[2022-08-12 20:00] VITALS: BP 135/83
[2022-08-12] MEDS: DIVALPROEX 500 MG TABEC PO SCH (21:49)
[2022-08-12] MEDS: traZODone 50 MG TAB PO SCH (21:50)
[2022-08-12] MEDS: ZOLPIDEM 10 MG TAB PO PRN (23:58)
[2022-08-13 04:00] VITALS: BP 106/60
[2022-08-13] MEDS: BLOOD GLUCOSE MONITORING 1 DEV DEV FS SCH (07:02)
[2022-08-13 07:12] LABS: ANION GAP 11.9 (8-16); CARBON DIOXIDE 27.9 mmol/L (21-32); CREATININE 0.8 mg/dL (0.6-1.3); POTASSIUM 3.8 mmol/L (3.5-5.1)
[2022-08-13 07:14] LABS: BASOPHILS % (AUTO) 0.3 % (0.0-2.0); EOSINOPHILS # (AUTO) 0.4 K/uL (0-0.4); EOSINOPHILS % (AUTO) 2.7 % (0.0-4.0); HEMATOCRIT 38.8 % (36-52); HEMOGLOBIN 12.8 g/dL (12.0-18.0); LYMPHOCYTES # (AUTO) 5.1 K/uL (2.0-11.5); LYMPHOCYTES % (AUTO) 34.5 % (20.5-51.1); MEAN CORPUSCULAR HEMOGLOBIN 30 pg (27-31); MEAN CORPUSCULAR HGB CONC 33 g/dL (33-37); MEAN CORPUSCULAR VOLUME 90.2 fL (80-94); MONOCYTES # (AUTO) 0.6 K/uL (0.8-1.0); MONOCYTES % (AUTO) 4.3 % (1.7-9.3); NEUTROPHILS # (AUTO) 8.7 K/uL (1.8-7.7); NEUTROPHILS % (AUTO) 58.2 % (42.2-75.2); PLATELET COUNT (AUTO) 408 K/uL (140-450); RED CELL DISTRIBUTION WIDTH 13.4 % (11.6-13.7); WHITE BLOOD COUNT (AUTO) 14.9 K/uL (4.8-10.8)
--- NOTE | 2022-08-13 07:25 | NUR ---
RECEIVED REPORT FROM TILE DECORATOR NURSE FOR CONTINUITY OF CARE. PT IS AWAKE, NO SIGNS OF DISTRESS. CALL LIGHT WITHIN REACH. MNURUM
[2022-08-13] MEDS: DOCUSATE SODIUM 250 MG GELCAP PO SCH (09:14)
[2022-08-13] MEDS: cloZAPine 100 MG TAB PO SCH ×2 (09:14→20:42)
[2022-08-13] MEDS: amLODIPine 5 MG TAB PO SCH (09:15)
[2022-08-13] MEDS: NICOTINE TRANSD SYS 7 MG/24 HR PATCH TD SCH (09:15)
[2022-08-13] MEDS: GLIMEPIRIDE 2 MG TAB PO SCH ×2 (09:22→16:57)
--- NOTE | 2022-08-13 19:20 | NUR ---
RECEIVED PT FROM AM NURSE FOR CONTINUITY OF CARE. PT IS STABLE
[2022-08-13] MEDS: DIVALPROEX 500 MG TABEC PO SCH (20:43)
[2022-08-13] MEDS: HALOPERIDOL 5 MG TAB PO SCH (20:44)
[2022-08-13] MEDS: traZODone 50 MG TAB PO SCH (20:44)
[2022-08-13] MEDS ORDERED: HALOPERIDOL 1 MG TAB PO SCH (21:00)
--- NOTE | 2022-08-14 07:15 | NUR ---
ENDORSED PT TO AM NURSE FOR CONTINUITY OF CARE. PT IS STABLE
--- NOTE | 2022-08-14 07:15 | NUR ---
ASSUMED CONTINUITY OF CARE. INITIAL ASSESSMENT DONE. CALM AND COOPERATIVE. KEEP COMFORTABLE ON BED. CALL LIGHT WITHIN REACH.
[2022-08-14 08:00] VITALS: BP 95/49
[2022-08-14] MEDS: HALOPERIDOL 5 MG TAB PO SCH ×2 (09:00→20:10)
[2022-08-14] MEDS: amLODIPine 5 MG TAB PO SCH (09:00)
[2022-08-14] MEDS: GLIMEPIRIDE 2 MG TAB PO SCH ×2 (09:10→17:04)
[2022-08-14] MEDS: NICOTINE TRANSD SYS 7 MG/24 HR PATCH TD SCH ×2 (09:11→09:38)
[2022-08-14] MEDS: DOCUSATE SODIUM 250 MG GELCAP PO SCH (09:12)
[2022-08-14] MEDS: cloZAPine 100 MG TAB PO SCH ×2 (09:12→20:08)
--- NOTE | 2022-08-14 13:10 | NUR ---
SLEEPING WELL. NO DISCOMFORT NOTED. CALL LIGHT WITHIN REACH.
--- NOTE | 2022-08-14 13:37 | NUR ---
08/14/22 RD FOLLOW UP COMPLETED PLEASE REFER TO NUTRITION ASSESSMENT UNDER CARE ACTIVITY FOR ESTIMATED NUTRITIONAL NEEDS. 1. CONTINUE ON [facility] DIET TOLERATED 2. MONITOR GI, PO INTAKE, AND NUTRITION RELATED LAB VALUES. 3. RD TO FOLLOW-UP 7 DAYS, LOW RISK BIANKA JONES, RD
[2022-08-14] MEDS ORDERED: MELA3TAB21 PO (13:48)
[2022-08-14] MEDS ORDERED: HAL5 PO (13:48)
[2022-08-14] MEDS ORDERED: GLIM2TAB PO (13:48)
[2022-08-14] MEDS ORDERED: DOCU250C7 PO (13:48)
[2022-08-14] MEDS ORDERED: TRAZ-466 PO (13:48)
[2022-08-14] MEDS ORDERED: AMLO-3 PO (13:48)
[2022-08-14] MEDS ORDERED: [UNRECOGNIZED DRUG - CODE] PO (13:48)
[2022-08-14] MEDS ORDERED: MAGN400T61 PO (13:48)
[2022-08-14] MEDS ORDERED: ONDA2SOL45 IVP (13:48)
[2022-08-14] MEDS ORDERED: NICO1PAT64 TD (13:48)
[2022-08-14] MEDS ORDERED: ZOLP10TA1 PO (13:48)
[2022-08-14] MEDS ORDERED: DIVA500E2 PO (13:48)
--- NOTE | 2022-08-14 15:45 | NUR ---
WALKING AROUND INSIDE ROOM. NO UNTOWARD BEHAVIOR OBSERVED. WILL MONITOR.
[2022-08-14 16:00] VITALS: BP 108/75
--- NOTE | 2022-08-14 19:05 | NUR ---
REPORT GIVEN TO CHRISTIN VALENTINE FOR CONTINUITY OF CARE. IN STABLE CONDITION.
--- NOTE | 2022-08-14 19:15 | NUR ---
RECEIVED PATIENT FROM AM NURSE FOR CONTINUITY OF CARE. PATIENT IS STABLE
[2022-08-14] MEDS: DIVALPROEX 500 MG TABEC PO SCH (20:08)
[2022-08-14] MEDS: traZODone 50 MG TAB PO SCH (20:09)
[2022-08-15 04:00] VITALS: BP 130/75
--- NOTE | 2022-08-15 07:10 | NUR ---
RECEIVED REPORT FROM MARKETING DATABASE COORDINATOR CHRISTIN FOR CONTINUITY OF CARE. ASSESSMENT DONE. ALERT AND ORIENTED X 4. RESP. EVEN AND UNLABORED. NO IV ACCESS, MD MADE AWARE. NO C/O PAIN OR DISCOMFORT. CALL LIGHT KEPT WITHIN REACH. PT WILL MONITOR CLOSELY.
[2022-08-15 08:00] VITALS: BP 123/81
--- NOTE | 2022-08-15 08:00 | NUR ---
Patient's Plan of Care was discussed and reviewed with MOLDING AND TRIM INSTALLER: KARYNA
[2022-08-15] MEDS: DOCUSATE SODIUM 250 MG GELCAP PO SCH (09:27)
[2022-08-15] MEDS: GLIMEPIRIDE 2 MG TAB PO SCH (09:28)
[2022-08-15] MEDS: amLODIPine 5 MG TAB PO SCH (09:28)
--- NOTE | 2022-08-15 09:28 | NUR ---
SCHEDULED MEDICATIONS GIVEN. TOLERATED WELL.
[2022-08-15] MEDS: HALOPERIDOL 5 MG TAB PO SCH (09:29)
[2022-08-15] MEDS: cloZAPine 100 MG TAB PO SCH (09:29)
[2022-08-15] MEDS: NICOTINE TRANSD SYS 7 MG/24 HR PATCH TD SCH (09:36)
--- NOTE | 2022-08-15 10:20 | NUR ---
PT LEFT DISCHARGE TO [facility] IN [place]. TRANSPORTED BY PRIVATE VEHICLE, ACCOMPANIED BY HELPING HEARTS ADOPTION COUNSELOR. AMBULATORY. ALERT AND ORIENTED X 3. RESP. EVEN AND UNLABORED. ID BAND REMOVED. NO IV ACCESS. DISCHARGE PAPERWORKS GIVEN. NO PERSONAL BELONGINGS NOTED. REMAINS STABLE.
== END 2022-08-15 10:20 | disposition home or self-care (01) | DRG 638 ==
LOC: MED 20:35 → MMU 07-12 02:16 → MTU 07-12 06:38
PROVIDERS: ADMIT Student in an Organized Health Care Education/Training Program; ATTEND Student in an Organized Health Care Education/Training Program
DX: E11.10 Type 2 diabetes mellitus with ketoacidosis without coma (principal); E87.1 Hypo-osmolality and hyponatremia; E11.65 Type 2 diabetes mellitus with hyperglycemia; F99 Mental disorder, not otherwise specified; I10 Essential (primary) hypertension; F20.9 Schizophrenia, unspecified; Z20.822 Contact with and (suspected) exposure to COVID-19; E78.5 Hyperlipidemia, unspecified; Z91.148 Patient's other noncompliance with medication regimen for other reason; Z72.0 Tobacco use
CPT/HCPCS: 36415; 36600; 71045; 80048; 80053; 81003; 82009; 82803; 82948; 83605; 85025; 85730; 87040; 87081; 87086; 87635-QW; 96361; 96365; 96376; 99285; J0696; J1630; J1650; J1815; J1940; J2060; J7060